=== PATIENT | female | born 1990 | race Caucasian/White ===

== ENCOUNTER 2020-10-20 15:40 | Outpatient (CLI) | payer OTHER, SELFPAY ==
[2020-10-20 16:44] LABS: SARS-CoV-2 RNA PCR Positive (Negative)
== END 2020-10-20 15:41 | disposition home or self-care (01) ==
LOC: CHSLAB 15:44
PROVIDERS: PCP Internal Medicine; Visit Provider Internal Medicine
DX: U07.1 COVID-19 (principal)
CPT/HCPCS: C9803; U0003; U0005

== ENCOUNTER 2023-05-10 17:57 | Emergency (ER) | payer OTHER, SELFPAY ==
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
[2023-05-10 18:00] VITALS: BP 139/98; PULSE 104; RESP 18; TEMP 36.6; O2SAT 97
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
[2023-05-10] MEDS: KETOROLAC 30 MG/ML VIAL (*BKC) IM (18:20)
[2023-05-10 18:46] LABS: Pregnancy On Board Control Positive; Urine Pregnancy Test Negative
--- NOTE | 2023-05-10 19:06 | PC.NURSE ---
On 05/10/23, the student, [cyndee العلي ], provided care and completed [facility] documentation on this patient. I have reviewed the student's documentation and agree with the findings.
--- NOTE | 2023-05-10 19:10 | PC.NURSE ---
patient report received from ELDA Stubbs. Patient awake and alert, given chips and soda per request.
--- NOTE | 2023-05-10 19:10 | PC.NURSE ---
patient report received from ELDA Stubbs. Patient awake and alert, resting on stretcher without distress and reports of improved pain. spouse at bedside.
== END 2023-05-10 19:33 | disposition home or self-care (01) ==
PROVIDERS: Emergency Provider Internal Medicine Critical Care Medicine; PCP Internal Medicine
DX: M25.522 Pain in left elbow (principal); V89.0XXA Person injured in unspecified motor-vehicle accident, nontraffic, initial encounter
CPT/HCPCS: 73080; 81025; 96372; 99283; J1885

== ENCOUNTER 2023-08-25 16:59 | Outpatient (CLI) | payer OTHER, SELFPAY ==
--- NOTE | ~2023-08-25 | XR_ITS ---
EXAM: XR lumbar spine 2-3V DATE: 08/25/2023 17:29 HISTORY: LOWER BACK PAIN X 8 MONTHS ONLY WHEN ITS COLD OUTSIDE . COMPARISON: None available. FINDINGS: 5 nonrib-bearing lumbar-type vertebral bodies. Pedicles intact. Normal vertebral body alig nment. Vertebral body heights preserved. Lumbar disc spaces maintained. Incidental note of mild jorge nal osteophytosis/degenerative change at the T12-L1 disc space Normal facets and posterior elements. No fracture or dislocation. IMPRESSION: Unremarkable lumbar spine radiograph findings. Reviewed, dictated and finalized at location K. [employer]
[2023-08-25 17:14] LABS: Appearance Urine Clear (Clear); Basophils Absolute Auto 0.05 K/mm3 (0.00-0.10); Basophils Percent Auto 0.6 % (0.0-1.0); Bilirubin Urine Negative (Negative); Blood Urine Negative (Negative); Color Urine Light Yellow (Yellow); Eosinophils Absolute Auto 0.31 K/mm3 (0.02-0.50); Eosinophils Percent Auto 3.9 % (1.0-6.0); Glucose Urine UA Negative (Negative); Hematocrit 40.9 % (35.0-49.0); Hemoglobin 13.4 g/dL (12.0-15.0); Immature Granulocyte Absolute 0.03 K/mm3 (0.00-0.00); Immature Granulocyte Percent A 0.4 % (0.0-0.0); Ketones Urine Negative (Negative); Leukocyte Esterase Ur Negative (Negative); Lymphocytes Absolute Auto 1.95 K/mm3 (1.10-4.50); Lymphocytes Percent Auto 24.4 % (18.0-42.0); Mean Corpuscular HGB Conc 32.8 g/dL (32.0-36.0); Mean Corpuscular Hemoglobin 27.5 pg (27.0-31.0); Mean Corpuscular Volume 83.8 fL (78.0-102.0); Mean Platelet Volume 9.9 fl (9.2-11.8); Neutrophils Absolute Auto 5.3 K/mm3 (1.7-7.2); Neutrophils Percent Auto 65.7 % (50.0-70.0); Nitrate Urine Negative (Negative); Platelet Count Result 298 K/mm3 (150-420); Protein Urine Negative (Negative); Red Blood Count 4.88 M/mm3 (4.20-5.40); Red Cell Distribution Width 13.5 % (11.6-14.4); Urobilinogen Urine 0.2 mg/dL (0.2-1.0); pH Urine 5.5 (5.0-8.0)
[2023-08-25 17:39] LABS: Add Urine Microscopic? NO
[2023-08-25 18:06] LABS: Hemoglobin A1C 5.1 % (<5.7)
[2023-08-25 18:16] LABS: Alanine Aminotransferase 54 U/L (14-59); Albumin Level 3.7 g/dL (3.4-5.0); Alkaline Phosphatase 123 U/L (46-116); Anion Gap 8 mmol/L (8-16); Aspartate Amino Transferase 32 U/L (15-37); Blood Urea Nitrogen 9 mg/dL (7-18); CRP 1.7 mg/dL (0.0-0.9); Calcium 8.4 mg/dL (8.5-10.1); Carbon Dioxide 29 mmol/L (21-32); Chloride 100 mmol/L (98-108); Cholesterol 174 mg/dL (0-200); Estimated Glomerular Filt Rate > 60; Glucose 85 mg/dL (70-99); HDL Direct 45 mg/dL (40-60); LDL Cholesterol Calculated 113 mg/dL (<130); Osmolality Calculated 281 mOsm/kg (285-295); Potassium 3.6 mmol/L (3.5-5.1); Sodium 137 mmol/L (136-145); Thyroid Stimulating Hormone 1.77 uIU/mL (0.36-3.74); Triglycerides 78 mg/dL (0-150)
== END 2023-08-25 17:00 | disposition home or self-care (01) ==
LOC: CHSLAB 17:01
PROVIDERS: PCP Internal Medicine; Visit Provider Internal Medicine
DX: M54.50 Low back pain, unspecified (principal)
CPT/HCPCS: 36415; 72100; 80053; 80061; 81003; 83036; 84443; 85025; 86140

== ENCOUNTER 2023-08-29 07:22 | Outpatient (CLI) | payer OTHER, SELFPAY ==
--- NOTE | ~2023-08-29 | US_ITS ---
Limited Abdominal Sonogram: Real-time sonographic imaging of the right upper quadrant was performed. Clinical History: Abnormal liver enzymes Findings: The liver appears echogenic, with no evidence of mass lesion or bile duct dilatation. Main portal vein demonstrates normal direction of flow. The gallbladder is well distended, and contains e chogenic gallstones. The common bile duct measures 3 mm. The visualized pancreas, aorta, and IVC are unremarkable. Impression: Cholelithiasis. Fatty infiltration of the liver. Reviewed, dictated and finalized at location M. [employer]AT[employer]IVER Impression: Cholelithiasis. Fatty infiltration of the liver.
== END 2023-08-29 07:23 | disposition home or self-care (01) ==
LOC: CHSIMG 07:24
PROVIDERS: PCP Internal Medicine; Visit Provider Internal Medicine
DX: R94.5 Abnormal results of liver function studies (principal); K76.0 Fatty (change of) liver, not elsewhere classified; K80.20 Calculus of gallbladder without cholecystitis without obstruction
CPT/HCPCS: 76705

== ENCOUNTER 2023-09-05 07:52 | Outpatient (RCR) | payer OTHER, SELFPAY ==
--- NOTE | 2023-09-15 16:50 | OPREHPOC ---
Outpatient Therapy Plan of Care This is a Multidisciplinary Plan of Care that may contain components documented by all disciplines (PT, OT, and ST.) PT Problem 1 PT Problem #1 Knowledge Deficit PT Goal 1 Goal patient to demonstrate independence with HEP Target Visit 5 PT Problem 2 PT Problem #2 Pain PT Goal 1 Goal 1. Patient to report highest pain at 2/10 2. Patient to report no increase in pain following work day Target Visit 10 PT Problem 3 PT Problem #3 Impaired Strength PT Goal 1 Goal 1. Patient to demonstrate 5/5 B hip strength to improve ability to squat for house hold tasks 2. Patient to demonstrate 4+/5 core strength to return to picking her daughter up with no increase in pain Target Visit 10 PT Problem 4 PT Problem #4 Impaired Functional Mobil PT Goal 1 Goal 1. Patient to report ability to grocery shop with no increase in low back pain 2. Patient to improve Back Index scoring by 20% 3. Patient to report full participation with her children with no low back pain Target Visit 10
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
--- NOTE | 2023-10-10 08:50 | OPREHPOC ---
Outpatient Therapy Plan of Care This is a Multidisciplinary Plan of Care that may contain components documented by all disciplines (PT, OT, and ST.) PT Problem 1 PT Problem #1 Knowledge Deficit PT Goal 1 Goal patient to demonstrate independence with HEP Target Visit 5 Progress Met PT Problem 2 PT Problem #2 Pain PT Goal 1 Goal 1. Patient to report highest pain at 2/10 2. Patient to report no increase in pain following work day Target Visit 10 Progress Partially Met PT Problem 3 PT Problem #3 Impaired Strength PT Goal 1 Goal 1. Patient to demonstrate 5/5 B hip strength to improve ability to squat for house hold tasks 2. Patient to demonstrate 4+/5 core strength to return to picking her daughter up with no increase in pain Target Visit 10 Progress Partially Met PT Problem 4 PT Problem #4 Impaired Functional Mobil PT Goal 1 Goal 1. Patient to report ability to grocery shop with no increase in low back pain 2. Patient to improve Back Index scoring by 20% 3. Patient to report full participation with her children with no low back pain Target Visit 10 Progress Met
--- NOTE | 2023-10-10 08:50 | PTOPDC ---
Assessment and note entered by Laura Galdamez DPT Evaluation Information Assessment Status Re-evaluation Diagnosis low back pain Onset 08/28/23 Subjective Information Patient reports since start of PT her back pain has improved. She reports that she has improved ability to lift her daughter and squat. She reports when is pain is at its worse walking will increase her pain. She reports independence with HEP. Reported Pain Level Pain Score 3: Self Report Assessment PT Clinical Summary Ms. Qiu was seen for 10 visits of skilled PT with good progress towards all goals. She demonstrates improved LE and core strength and ability to squat. She has decreased pain and improved lumbar ROM. She reports improvement with picking up her daughter and walking prolonged distances. She is independent with HEP and is appropriate for DC at this time. Plan of Care PT Services Indicated No
== END 2023-10-10 20:00 | disposition home or self-care (01) ==
LOC: CHSPT 07:52
PROVIDERS: PCP Internal Medicine; Visit Provider Internal Medicine
DX: M54.50 Low back pain, unspecified (principal)
CPT/HCPCS: 97014; 97110; 97161; G0283

== ENCOUNTER 2023-10-07 16:22 | Emergency (ER) | payer OTHER, SELFPAY ==
[2023-10-07 16:22] VITALS: BP 159/99; PULSE 98; RESP 17; TEMP 37; O2SAT 97
--- NOTE | 2023-10-07 16:31 | ED.DENTAL ---
HPI - Dental/Oral General Chief complaint: Dental/Oral Stated complaint: TOOTH PAIN Time Seen by Provider: 10/07/23 16:31 Source: patient and family Mode of arrival: ambulatory Limitations: no limitations History of Present Illness HPI Narrative: this is a 33-year-old female with a history of severe tooth decay and is currently having increased inflammation tooth decay in her right lower molar with surrounding gum inflammation, with tender submandibular gland on the right with no shortness of breath no fever chills no nausea vomiting. MD Complaint: tooth pain Teeth map: 1. tooth decay with surrounding gum inflammation Onset (ago): week(s) Duration: constant Severity: moderate Severity scale (1-10): 6 Exacerbating factors: chewing, cold and drinking fluids Context: history of dental caries Associated symptoms: gum swelling Related Data Allergies Allergy/AdvReac Type Severity Reaction Status Date / Time beet Allergy Unknown Hives Unverified 10/07/23 16:31 strawberry Allergy Unknown Hives Unverified 10/07/23 16:31 Review of Systems Review of Systems: All systems reviewed & are unremarkable except as noted in HPI and below PMFSH Past Medical History Medical History Anemia Social History Social History Smoking status: Current some day smoker Exam Const: General: healthy appearing, no acute distress and alert Nutritional Appearance: well nourished Orientation/consciousness: patient oriented x3 Limitations: no limitations HENMT: Head: normal to inspection Other: Severe tooth decay and predominantly right lower molar area with severe tooth decay with surrounding gum inflammation tenderness with palpation and tender right submandibular gland. Neck: Neck: lymphadenopathy Chest: Chest palpation & inspection: normal inspection of the chest Resp: Effort & Inspection: normal respiratory effort Auscultation: clear to auscultation bilaterally Cardio: Rate: regular rate Rhythm: regular rhythm GI: GI Palp: Yes Soft to palpation Back/Spine/Pelvis: Back: no CVA tenderness Skin: General skin exam: normal color Neuro: General: patient oriented x3 and moves all extremities Extrem: General: normal to inspection Psych: Mental Status: mental status grossly normal Course Course Emergency Course: Patient with some dental pain and severe tooth decay with surrounding gum inflammation indicative of a dental abscess will start antibiotic will be sending to her pharmacy. Vital Signs Vital signs: Vital Signs Temperature 37.0 C 10/07/23 16:22 Pulse Rate 98 10/07/23 16:22 Respiratory Rate 17 10/07/23 16:22 Blood Pressure 159/99 H 10/07/23 16:22 Pulse Oximetry 97 10/07/23 16:22 Oxygen Delivery Room Air 10/07/23 16:22 Temperature 37.0 C 10/07/23 16:22 Pulse Rate 98 10/07/23 16:22 Respiratory Rate 17 10/07/23 16:22 Blood Pressure 159/99 H 10/07/23 16:22 Pulse Oximetry 97 10/07/23 16:22 Oxygen Delivery Room Air 10/07/23 16:22 Critical Care Time Critical Care Time Critical Care Time: No Discharge Plan Discharge Clinical Impression: Dental abscess, Dental caries Patient Disposition: Home, Self-Care Condition: Stable Instructions: Antibiotic Form, Dental Abscess (ED), Toothache (ED) Additional Instructions: Advised to take medicine as prescribed and follow-up with dentist for further evaluation and treatment. Prescriptions: New amoxicillin 500 mg tablet 500 mg PO TID Qty: 30 0RF naproxen 500 mg tablet 500 mg PO BID PRN (Reason: pain) Qty: 20 0RF No Action meloxicam 7.5 mg tablet 7.5 mg PO DAILY Qty: 10 0RF Follow-up/Referrals: Deepak Taveras MD [Primary Care Provider] - Stand Alone Forms: Work/School Release IP Time of Disposition: 16:36
[2023-10-07 16:48] VITALS: BP 159/99; PULSE 98; RESP 17; TEMP 37; O2SAT 97
--- NOTE | 2023-10-07 17:05 | PC.NURSE ---
Prescriptions called to [facility] is closed, messaged left at [facility] to cancel prescription.
== END 2023-10-07 16:48 | disposition home or self-care (01) ==
PROVIDERS: Emergency Provider Emergency Medicine; PCP Internal Medicine
DX: K04.7 Periapical abscess without sinus (principal); K02.9 Dental caries, unspecified
CPT/HCPCS: 99283

== ENCOUNTER 2024-09-22 17:49 | Emergency (ER) | payer BC, SELFPAY ==
--- NOTE | ~2024-09-22 | CT_ITS ---
EXAMINATION: CT abdomen pelvis wo con DATE: 09/22/2024 20:44 INDICATION: Right flank pain SINCE 1530 HRS TODAY. TECHNIQUE: Computed tomography (CT) of the abdomen and pelvis was performed without intravenous contr ast. Automated exposure control and iterative reconstruction technique were employed. The dose-length product was 1300.86 mGy-cm. COMPARISON: None. FINDINGS: Lower thorax: Minimal scar/atelectasis in the peripheral right middle lobe. Small hiatal hernia. Liver: Normal. Biliary/Gallbladder: Cholelithiasis. No inflammatory change. No bile duct dilation. Pancreas: No mass or duct dilation. Spleen: Normal. Adrenals:No mass. Kidneys: No suspicious mass, obstructing stone, or hydronephrosis. Punctate right midpole calcificati on. 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 GI tract: No small or large bowel dilation. Dilated appendix with mild surrounding inflammatory casillas e. Mesentery/Peritoneum: No ascites, mass, or free air. Retroperitoneum: No mass. Pelvis: Normal urinary bladder, uterus, and ovaries. 4.3 cm simple appearing right ovarian cyst. Soft Tissues: Small uncomplicated appearing fat-containing periumbilical hernia. Bones: No acute osseous finding. IMPRESSION: Cholelithiasis, without CT evidence of cholecystitis. No CT evidence of obstructive uropathy. Acute uncomplicated appendicitis. Reviewed, dictated and finalized at location K.
[2024-09-22 17:51] VITALS: BP 155/92; PULSE 86; RESP 16; TEMP 36.8; O2SAT 96
--- OUTSIDE RECORDS SUMMARY | 2024-09-22 17:52 | XMS_ITS | Continuity of Care Document ---
Author Organization [facility] Address [address] [place] [address] [place] [address] Phone Care Team Providers Care Medical Office Secretary Name Role Phone Unavailable Unavailable Unavailable Advance Directives Directive Yes / No Effective Date File Name No Information Encounters Encounter Description Practice Location Reason(s) For Visit Diagnoses Date Provider Providers Copied on Encounter [facility], [address] [place] [address] [address], [place], [place], [id number], [place] tel:[phone] [facility] [place] No Information Sep- 7-200 0 No Information Family History Family Member Type Diagnosis Age At Onset No Information Payers Payer name Insurance type Covered republican ID Authoriza tion(s) [employer]I CI [id number] Social History Type Description Quantity Date Captured Comments Sex Female Smoking Status No Information Chief Complaint And Reason For Visit No Information Reason For Referral Reason For Referral No Information History Of Present Illness Encounter Date Complaint History Of Prese nt Illness No Information Functional Status Date Functional Assessmen t No Information Instructions Date Instruction Additional Infor mation No Information Assessments Type Assessment Date No Information Patient Care Teams Name Effective Dates (start - stop) Status Members No Information
--- NOTE | 2024-09-22 18:06 | ED.GENADULT ---
HPI - General Adult General Chief complaint: Urogenital-Female <Ulices Jara DO - Last Filed: 09/24/24 07:55> Stated complaint: rt. side flank pain <Ulices Jara DO - Last Filed: 09/24/24 07:55> Time Seen by Provider: 09/22/24 17:58 <Ulices Jara DO - Last Filed: 09/24/24 07:55> History of Present Illness HPI narrative: Josie is a 34F with a PMH of anemia that presented ot the ED with right flank pain for a couple hours. It started as right flank pain that radiates to the groin associated with nausea but no vomiting. She has had a couple episodes of watery diarrhea as well. No hematuria, dysuria, fevers, chills or dyspnea. <Ulices Jara DO - Last Filed: 09/24/24 07:55> Related Data Home medications: Home Medications ?Medication ?Instructions ?Recorded ?Confirmed ?Last Taken ?Type citalopram 20 mg tablet 40 mg PO DAILY 09/23/24 09/23/24 09/23/24 History valproic acid 250 mg capsule 250 mg PO Q12H 09/23/24 09/23/24 09/23/24 History <Ulices Jara DO - Last Filed: 09/24/24 07:55> Allergies/adverse reactions: Allergies Allergy/AdvReac Type Severity Reaction Status Date / Time beet Allergy Unknown Hives Verified 09/23/24 08:19 strawberry Allergy Unknown Hives Verified 09/23/24 08:19 <Ulices Jara DO - Last Filed: 09/24/24 07:55> Review of Systems Review of Systems: All systems reviewed & are unremarkable except as noted in HPI and below <Ulices Jara DO - Last Filed: 09/24/24 07:55> PMF Past Medical History Medical History: Medical History Anemia <Ulices Jara DO - Last Filed: 09/24/24 07:55> Social History Social History: Social History Smoking status: Never smoker Second hand tobacco smoke exposure: No Alcohol intake: never Substance use: current Substance use type: marijuana Do You Feel Safe in your Home?: Yes Lack of Transportation: No Lack of Food: Never True Current Housing: I Have Housing Concerned About Future Housing: No Difficulty Paying Gas/Electric Bills: No Difficulty Paying for Meds: No Currently Unemployed: No Education: Master's Degree or Higher Difficulty w/ Childcare or Family Care: No Spiritual care concerns: No <Ulices Jara DO - Last Filed: 09/24/24 07:55> Exam Const: General: cooperative, healthy appearing, comfortable, no acute distress, well developed, alert, awake and Physically active <Ulices Jara DO - Last Filed: 09/24/24 07:55> Orientation/consciousness: oriented to person, oriented to place and oriented to time <Ulices Jara DO - Last Filed: 09/24/24 07:55> HENMT: Head: normal to inspection, normocephalic and atraumatic <Ulices Jara DO - Last Filed: 09/24/24 07:55> Ears: hearing grossly normal bilaterally and external ears normal <Ulices Jara, DO - Last Filed: 09/24/24 07:55> Face/Nose/Sinus: Normal external nose present <Ulices Jara DO - Last Filed: 09/24/24 07:55> Eyes: General: appearance normal, both eyes and all related structures <Ulices Jara DO - Last Filed: 09/24/24 07:55> Periorbital: periorbital findings normal <Ulices Jara DO - Last Filed: 09/24/24 07:55> Sclera: sclerae normal <Ulices Jara DO - Last Filed: 09/24/24 07:55> Pupils: Equal, round and reactive pupils present <Ulices Jara DO - Last Filed: 09/24/24 07:55> Neck: Neck: normal visual inspection <Ulices Jara DO - Last Filed: 09/24/24 07:55> Chest: Chest palpation & inspection: normal inspection of the chest <Ulices Jara DO - Last Filed: 09/24/24 07:55> Resp: Effort & Inspection: normal respiratory effort, able to speak in complete sentences and no respiratory distress <Ulices Jara DO - Last Filed: 09/24/24 07:55> Auscultation: clear to auscultation bilaterally <Ulices Jara DO - Last Filed: 09/24/24 07:55> Cardio: Jugular venous distension: no JVD <Ulices Jara DO - Last Filed: 09/24/24 07:55> Rate: regular rate <Ulices Jara DO - Last Filed: 09/24/24 07:55> Rhythm: regular rhythm <Ulices Jara DO - Last Filed: 09/24/24 07:55> GI: Inspection: normal to inspection <Ulices Jara DO - Last Filed: 09/24/24 07:55> GI Palp: Yes Soft to palpation <Ulices Jara DO - Last Filed: 09/24/24 07:55> Auscultation: normal bowel sounds <Ulices Jara DO - Last Filed: 09/24/24 07:55> Skin: General skin exam: normal color and no rashes or lesions noted <Ulices Jara DO - Last Filed: 09/24/24 07:55> Neuro: General: oriented to person, oriented to place and oriented to time <Ulices Jara DO - Last Filed: 09/24/24 07:55> Cranial nerves: Yes Equal, round and reactive pupils present <Ulices Jara DO - Last Filed: 09/24/24 07:55> Extrem: General: normal to inspection <Ulices Jara DO - Last Filed: 09/24/24 07:55> Course Course Emergency Course: Ordered labs and UA. Given toradol and Zofran. <Ulices Jara DO - Last Filed: 09/24/24 07:55> Reevaluation(s) Reevaluation #1: 19:00 - This patient was signed out to me by previous ED physician, Dr. Jara pending labs, imaging and re-evaluation. 21:20 - CBC demonstrates a white blood cell count of 16.6 with left shift. Chemistries remarkable only for slightly elevated alkaline phosphatase 128 and glucose of 133. Lipase 23. Lactic acid 1.7. Urinalysis unremarkable. test negative. CT abdomen pelvis demonstrates changes consistent with acute appendicitis. I discussed these findings with the patient with recommendation for antibiotics and General surgery evaluation. The patient voiced understanding and is comfortable with plan. She states her pain is currently controlled. 22:12 - General surgeon Dr. Moses was informed of the patient by overnight houseperson ELDA Saravia and accepted transfer with admission to general surgery. I did not speak directly with Dr. Moses. Will transfer. <Amari Peterson MD - Last Filed: 09/22/24 22:13> Vital Signs Vital signs: Vital Signs Temperature 98.2 F 09/22/24 17:51 Pulse Rate 86 09/22/24 17:51 Respiratory Rate 16 09/22/24 17:51 Blood Pressure 155/92 H 09/22/24 17:51 Pulse Oximetry 96 09/22/24 17:51 Oxygen Delivery Room Air 09/22/24 17:51 Temperature 97.6 F 09/22/24 22:41 Pulse Rate 77 09/22/24 22:41 Respiratory Rate 18 09/22/24 22:41 Blood Pressure 121/73 09/22/24 22:41 Pulse Oximetry 98 09/22/24 22:41 Oxygen Delivery Room Air 09/22/24 22:41 <Ulices Jara DO - Last Filed: 09/24/24 07:55> Vital Signs Temperature 98.2 F 09/22/24 17:51 Pulse Rate 86 09/22/24 17:51 Respiratory Rate 16 09/22/24 17:51 Blood Pressure 155/92 H 09/22/24 17:51 Pulse Oximetry 96 09/22/24 17:51 Oxygen Delivery Room Air 09/22/24 17:51 Temperature 97.6 F 09/22/24 22:41 Pulse Rate 77 09/22/24 22:41 Respiratory Rate 18 09/22/24 22:41 Blood Pressure 121/73 09/22/24 22:41 Pulse Oximetry 98 09/22/24 22:41 Oxygen Delivery Room Air 09/22/24 22:41 <Amari Peterson MD - Last Filed: 09/22/24 22:13> Medical Decision Making Vital Signs Vital Signs: Vital Signs Temperature 98.2 F 09/22/24 17:51 Pulse Rate 86 09/22/24 17:51 Respiratory Rate 16 09/22/24 17:51 Blood Pressure 155/92 H 09/22/24 17:51 Pulse Oximetry 96 09/22/24 17:51 Oxygen Delivery Room Air 09/22/24 17:51 Temperature 97.6 F 09/22/24 22:41 Pulse Rate 77 09/22/24 22:41 Respiratory Rate 18 09/22/24 22:41 Blood Pressure 121/73 09/22/24 22:41 Pulse Oximetry 98 09/22/24 22:41 Oxygen Delivery Room Air 09/22/24 22:41 <Ulices Jara DO - Last Filed: 09/24/24 07:55> Vital Signs Temperature 98.2 F 09/22/24 17:51 Pulse Rate 86 09/22/24 17:51 Respiratory Rate 16 09/22/24 17:51 Blood Pressure 155/92 H 09/22/24 17:51 Pulse Oximetry 96 09/22/24 17:51 Oxygen Delivery Room Air 09/22/24 17:51 Temperature 97.6 F 09/22/24 22:41 Pulse Rate 77 09/22/24 22:41 Respiratory Rate 18 09/22/24 22:41 Blood Pressure 121/73 09/22/24 22:41 Pulse Oximetry 98 09/22/24 22:41 Oxygen Delivery Room Air 09/22/24 22:41 <Amari Peterson MD - Last Filed: 09/22/24 22:13> Lab Data Result diagrams: 09/22/24 19:31 09/22/24 19:31 <Ulices Jara DO - Last Filed: 09/24/24 07:55> Labs: Lab Results 09/22/24 Range/Units 19:31 WBC 16.6 H (4.8-10.8) K/mm3 RBC 4.87 (4.20-5.40) M/mm3 Hgb 13.4 (12.0-15.0) g/dL Hct 42.2 (35.0-49.0) % MCV 86.7 (78.0-102.0) fL MCH 27.5 (27.0-31.0) pg MCHC 31.8 L (32-36) g/dL RDW 14.2 (11.6-14.4) % Plt Count 326 (150-420) K/mm3 MPV 10.5 (9.2-11.8) fl Immature Gran % (Auto) 0.5 H (0.0-0.0) % Neut % (Auto) 82.9 H (50.0-70.0) % Lymph % (Auto) 12.8 L (18.0-42.0) % Dickson % (Auto) 2.6 (2.0-11.0) % Eos % (Auto) 1.0 (1.0-6.0) % Baso % (Auto) 0.2 (0.0-1.0) % Lymph # (Auto) 2.12 (1.10-4.50) K/mm3 Dickson # (Auto) 0.43 (0.10-0.90) K/mm3 Eos # (Auto) 0.17 (0.02-0.50) K/mm3 Baso # (Auto) 0.04 (0.00-0.10) K/mm3 Abs Immat Gran (auto) 0.09 H (0.00-0.00) K/mm3 Absolute Neuts (auto) 13.72 H (1.70-7.20) K/mm3 Absolute Nucleated RBC 0.00 (0.00-0.00) K/mm3 Nucleated RBC % 0.0 (0-0.0) % Sodium 137 (136-145) mmol/L Potassium 3.7 (3.5-5.1) mmol/L Chloride 102 (98-108) mmol/L Carbon Dioxide 25 (21-32) mmol/L Anion Gap 10 (4-12) mmol/L BUN 11 (7-18) mg/dL Creatinine 0.97 (0.55-1.02) mg/dL Estim Creat Clear Calc 94 ml/min Estimated GFR > 60 (59 - ) Glucose 133 H (70-99) mg/dL Calculated Osmolality 285 (285-295) mOsm/kg Lactic Acid 1.7 (0.4-2.0) mmol/L Calcium 8.7 (8.5-10.1) mg/dL Total Bilirubin 0.4 (0.00-1.00) mg/dL AST 27 (15-37) U/L ALT 43 (14-59) U/L Alkaline Phosphatase 128 H (46-116) U/L Total Protein 8.1 (6.4-8.2) g/dL Albumin 3.5 (3.4-5.0) g/dL Lipase 23 (16-77) U/L Urine Color Light yellow (Yellow) Urine Appearance Clear (Clear) Urine pH 7.0 (5.0-8.0) Ur Specific [place] 1.025 H (1.010-1.020) Urine Protein Negative (Negative) Urine Glucose (UA) Negative (Negative) Urine Ketones Negative (Negative) Ur Blood (Man) Negative (Negative) Urine Nitrate Negative (Negative) Urine Bilirubin Negative (Negative) Urine Urobilinogen 0.2 (0.2-1.0) mg/dL Leukocyte Esterase Rfl Negative (Negative) ALICE/UL Urine Test Negative <Ulices Jara, DO - Last Filed: 09/24/24 07:55> Lab Results 09/22/24 Range/Units 19:31 WBC 16.6 H (4.8-10.8) K/mm3 RBC 4.87 (4.20-5.40) M/mm3 Hgb 13.4 (12.0-15.0) g/dL Hct 42.2 (35.0-49.0) % MCV 86.7 (78.0-102.0) fL MCH 27.5 (27.0-31.0) pg MCHC 31.8 L (32-36) g/dL RDW 14.2 (11.6-14.4) % Plt Count 326 (150-420) K/mm3 MPV 10.5 (9.2-11.8) fl Immature Gran % (Auto) 0.5 H (0.0-0.0) % Neut % (Auto) 82.9 H (50.0-70.0) % Lymph % (Auto) 12.8 L (18.0-42.0) % Dickson % (Auto) 2.6 (2.0-11.0) % Eos % (Auto) 1.0 (1.0-6.0) % Baso % (Auto) 0.2 (0.0-1.0) % Lymph # (Auto) 2.12 (1.10-4.50) K/mm3 Dickson # (Auto) 0.43 (0.10-0.90) K/mm3 Eos # (Auto) 0.17 (0.02-0.50) K/mm3 Baso # (Auto) 0.04 (0.00-0.10) K/mm3 Abs Immat Gran (auto) 0.09 H (0.00-0.00) K/mm3 Absolute Neuts (auto) 13.72 H (1.70-7.20) K/mm3 Absolute Nucleated RBC 0.00 (0.00-0.00) K/mm3 Nucleated RBC % 0.0 (0-0.0) % Sodium 137 (136-145) mmol/L Potassium 3.7 (3.5-5.1) mmol/L Chloride 102 (98-108) mmol/L Carbon Dioxide 25 (21-32) mmol/L Anion Gap 10 (4-12) mmol/L BUN 11 (7-18) mg/dL Creatinine 0.97 (0.55-1.02) mg/dL Estim Creat Clear Calc 94 ml/min Estimated GFR > 60 (59 - ) Glucose 133 H (70-99) mg/dL Calculated Osmolality 285 (285-295) mOsm/kg Lactic Acid 1.7 (0.4-2.0) mmol/L Calcium 8.7 (8.5-10.1) mg/dL Total Bilirubin 0.4 (0.00-1.00) mg/dL AST 27 (15-37) U/L ALT 43 (14-59) U/L Alkaline Phosphatase 128 H (46-116) U/L Total Protein 8.1 (6.4-8.2) g/dL Albumin 3.5 (3.4-5.0) g/dL Lipase 23 (16-77) U/L Urine Color Light yellow (Yellow) Urine Appearance Clear (Clear) Urine pH 7.0 (5.0-8.0) Ur Specific [place] 1.025 H (1.010-1.020) Urine Protein Negative (Negative) Urine Glucose (UA) Negative (Negative) Urine Ketones Negative (Negative) Ur Blood (Man) Negative (Negative) Urine Nitrate Negative (Negative) Urine Bilirubin Negative (Negative) Urine Urobilinogen 0.2 (0.2-1.0) mg/dL Leukocyte Esterase Rfl Negative (Negative) ALICE/UL Urine Test Negative <Amari Peterson MD - Last Filed: 09/22/24 22:13> Discharge Plan Discharge Clinical Impression: Acute appendicitis, Abdominal pain, right lower quadrant <Ulices Jara DO - Last Filed: 09/24/24 07:55> Patient Disposition: Acute Care [facility] <Ulices Jara DO - Last Filed: 09/24/24 07:55> Condition: Serious <Ulices Jara DO - Last Filed: 09/24/24 07:55> Patient Language: Kyrgyz <Ulices Jara DO - Last Filed: 09/24/24 07:55> Prescriptions: No Action valproic acid 250 mg capsule 250 mg PO Q12H citalopram 20 mg tablet 40 mg PO DAILY hydrocodone-acetaminophen 5-325 mg Tablet 1 tablet PO Q6H PRN (Reason: Pain Rated 4-6) Qty: 10 0RF <Ulices Jara DO - Last Filed: 09/24/24 07:55> Follow-up/Referrals: Kieran Baig M.D. [Primary Care Provider] - <Ulices Jara DO - Last Filed: 09/24/24 07:55> Time of Disposition: 22:12 <Ulices Jara DO - Last Filed: 09/24/24 07:55> 22:12 <Amari Peterson MD - Last Filed: 09/22/24 22:13>
--- OUTSIDE RECORDS SUMMARY | 2024-09-22 18:37 | XMS_ITS | Encounter Summary ---
Author Organization [facility] Address [address] [place] [id number] Care Team Providers Care Financial Solutions Advisor Name Role Phone Deepak Taveras MD Primary Care Provider [phone] Kieran Baig MD Unavailable [phone] Encounter Details Date Type Department Care Team (Late st Contact Info) Description 12/15/2018 Abstract [facility]FL CONVERSION [address] [place] [address] , Generic MD Apoorva Social History Tobacco Use Types Packs/Day Years Used Date Smoking Tobacco: Never Assessed Comments Unknown Sex and Gender Information Value Date Recorded Sex Assigned at Not on file Legal Sex Female 5:48 PM SUPERVISOR ABATTOIR Gender Identity Not on file Sexual Orientation Straight 09/13/2022 9: 50 PM SUPERVISOR ABATTOIR documented as of this encounter Plan of Treatment Not on file documented as of this encounter Visit Diagnoses Not on filedocumented in this encounter Care Teams Financial Solutions Advisor Relationship Specialty Start Date End Date Deepak Taveras MD [address] [place] [id number] PCP - General INTERNAL MEDICINE 02/20/21 Kieran Baig MD [address] [place] [address] JANET 03/11/22 documented as of this encounter
--- OUTSIDE RECORDS SUMMARY | 2024-09-22 18:37 | XMS_ITS | Clinical Summary ---
Author Organization [facility] Address [facility]ly [facility] [place] [address] Care Team Providers Care Quoter Name Role Phone Deepak Taveras MD Primary Care Provider [phone] Kieran Baig MD Unavailable [phone] Allergies No known active allergies Medications vitamin, low iron, ( VITAMIN WITH IRON) 27-0.8 MG tablet Take 1 tablet by mouth daily. Active Active Problems Problem Noted Date Diagnosed Date Uterine contractions during ([facility]CC) 09/13/2022 Vaginal bleeding during ([facility]/HCC) 08/2022 Family History Medical History Relation Comments No Known Problems Father Clotting Disorder Mother Diabetes Mother Asthma Sister 1 Cancer Sister 1 Clotting Disorder Sister 1 Cancer Sister 2 Relation Status Comments Father Alive Mother Alive Sister 1 Alive Sister 2 Alive Social History Tobacco Use Types Packs/Day Years Used Date Smoking Tobacco: Former Cigarettes Q uit: 01/06/2022 Passive Smoke Exposure: Current Smokeless Tobacco: Never Alcohol Use Standard Drinks/Week Comments Not Currently 0 (1 standard drink = 0.6 oz pur e alcohol) few Social Connection and Isolat ion Panel [NHANES] Answer Date Recorded In a typical week, how many times do you talk on the phone with family, friends, or neighbors? More than three times a week 09/13/2022 How often do you get togethe r with friends or relatives? Never 09/13/2022 How often do you attend chur ch or caodaism services? Never 09/13/2022 Do you belong to any clubs o r organizations such as baptism groups, unions, fraternal or athletic groups, or school groups? No 09/13/2022 How often do you attend meet ings of the clubs or organizations you belong to? Never 09/13/2022 Are you , , di vorced, , never , or living with a partner? 09/13/2022 AUDIT-C Answer Date Recorded Q1: How often do you have a drink containing alcohol? Never 09/13/2022 Q2: How many drinks containi ng alcohol do you have on a typical day when you are drinking? Patient does not drink Q3: How often do you have si x or more drinks on one occasion? Never 09/13/2022 Overall Financial Resource Strain (CARDIA) Answe r Date Recorded How hard is it for you to pa y for the very basics like food, housing, medical care, and heating? Not hard at all 09/13/2022 [facility] - Occupational Stress Questionnaire Answer Date Recorded Do you feel stress - tense, restless, nervous, or anxious, or unable to sleep at night because your mind is troubled all the time - these days? Not at all 09/13/2022 Exercise Vital Sign Answer Date Recorde d On average, how many days pe r week do you engage in moderate to strenuous exercise (like a brisk walk)? 6 days 09/13/2022 On average, how many minutes do you engage in exercise at this level? 30 min 09/13/2022 Hunger Vital Sign Answer Date Recorded Within the past 12 months, y ou worried that your food would run out before you got the money to buy more. Never true 09/14/19 23 Within the past 12 months, t he food you bought just didn't last and you didn't have money to get more. Never true 09/13/2022 PRAPARE - Transportation Answer Date Re corded In the past 12 months, has l ack of transportation kept you from medical appointments or from getting medications? No 01/2023 In the past 12 months, has l ack of transportation kept you from meetings, work, or from getting things needed for daily living? No 09/13/2022 Housing Stability Vital Sign Answer Cj e Recorded In the last 12 months, was t here a time when you were not able to pay the mortgage or rent on time? No 09/13/2022 In the last 12 months, how many places have you lived? 1 09/13/2022 In the last 12 months, was t here a time when you did not have a steady place to sleep or slept in a nursing home (including now)? No 09/13/2022 Depression Answer Date Recor ded Last EPDS Total Score 3 09/14/2022 Last EPDS Self Harm Result Often 09/14 Comments No Sex and Gender Information Value Date Recorded Sex Assigned at Not on file Legal Sex Female 5:48 PM BIOLOGIST Gender Identity Not on file Sexual Orientation Straight 09/13/2022 9: 50 PM BIOLOGIST Last Filed Vital Signs Vital Sign Reading Time Taken Comments Blood Pressure 139/83 09/15/2022 10:58 AM BIOLOGIST Pulse 79 09/15/2022 10:58 AM BIOLOGIST Temperature 36.7 C (98.1 F) 09/15/2022 8:40 AM BIOLOGIST Respiratory Rate 20 09/15/2022 8:40 AM BIOLOGIST Oxygen Saturation 98% 09/15/2022 8:40 AM BIOLOGIST Inhaled Oxygen Concentration - - Weight 98.4 kg (217 lb) 09/13/2022 5:00 PM BIOLOGIST Height 167.6 cm (5' 6 ) 09/13/2022 5:00 PM BIOLOGIST Body Mass Index 35.02 09/13/2022 5:00 PM BIOLOGIST Plan of Treatment Health Maintenance Due Date Last Done Comments Cervical Cancer Screening Pap Smear (Age 30 to 64) Every 3 Years 1991 Annual Physical 1994 DTaP, Tdap and Td Vaccines (1 - Tdap) 2010 09/08/1995, 11/13/1992, 1991, Additional history exists Hepatitis B Vaccines (1 of 3 - 19+ 3-dose series) 2010 Cervical Cancer Screening Pap with HPV Testing (Age 30 to 64) Every 5 Years 2021 Cervical Cancer Screening with HPV 2021 COVID-19 Vaccine (3 - 2024-25 season) 2024 12/17/2020, 11/26/2020 Influenza Adult (#1) 2024 Hepatitis C Completed 02/04/2022 HPV Vaccines Aged Out No longer eligi ble based on patient's age to complete this topic Meningococcal B Vaccine Aged Out No l onger eligible based on patient's age to complete this topic Meningococcal Vaccine Aged Out No trina bella eligible based on patient's age to complete this topic Pneumococcal Vaccine: Pediatrics (0 to 5 Years) and At-Risk Patients (6 to 64 Years) Aged Out No longer eligible based on patient's age to complete this topic RSV Immunizations Under 20 Months Aged Out No longer eligible based on patient's age to complete this topic Procedures Procedure Name Priority Date/Time Associated Diagnosis Comments HEPATITIS C ANTIBODY Routine 02/04/2022 12:36 PM CDT Family history of blood clots Encounter for supervision of other normal , unspecified trimester (HHS/HCC) from Last 3 Months or Most Recently Relevant to Health Maintenance Results * HEPATITIS C ANTIBODY (02/04/2022 12:36 PM CDT) HEPATITIS C AB NON-REACTI VE NON-REACT CESIA 02/05/2022 6:34 PM CDT [facility] Comment: ANTIBODIES TO HCV NOT DETECTED. DOES NOT EXCLUDE THE POSSIBILITY OF EXPOSURE TO HCV. 02/04/2022 12:3 6 PM CDT Zora Tong NP LABORATORY Final Result [facility] [address] [place] [address], [id number] from Last 3 Months or Most Recently Relevant to Health Maintenance [place] [address] [place] [address] Care Teams Quoter Relationship Specialty Start Date End Date Deepak Taveras MD [address] [place] [address] PCP - General INTERNAL MEDICINE 02/20/21 Kieran Baig MD [address] [place] [address] OBLILA 03/11/22
--- OUTSIDE RECORDS SUMMARY | 2024-09-22 18:37 | XMS_ITS | Encounter Summary ---
Author Organization [facility] Address [facility] [place] [address] Care Team Providers Care Wraparound Facilitator Name Role Phone Deepak Taveras MD Primary Care Provider [phone] Kieran Baig MD Unavailable [phone] Encounter Details Date Type Department Care Team (Late st Contact Info) Description 09/26/2022 Telephone [facility] [address] [place] [address] Carmen Ellis, RN Social History Tobacco Use Types Packs/Day Years [...] often do you attend chur ch or mormonism services? Never 09/13/2022 Do you belong to any clubs o r organizations such as pentecostal groups, unions, fraternal or athletic groups, or [...] and heating? Not hard at all 09/13/2022 [facility] of Occupat ional Health - Occupational Stress [...] place to sleep or slept in a group home (including now)? No 09/13/2022 Depression Answer Date Recor ded Last EPDS Total Score 3 09/14/2022 Last EPDS Self Harm Result Often 09/14 Comments No Sex and Gender Information Value Date Recorded Sex Assigned at Not on file Legal Sex Female 5:48 PM X RAY EQUIPMENT TESTER Gender Identity Not on file Sexual Orientation Straight 09/13/2022 9: 50 PM X RAY EQUIPMENT TESTER COVID-19 Exposure Response Date Recorded In the last 10 days, have yo u been in contact with someone who was confirmed or suspected to have Coronavirus/COVID-19? No / Unsure 09/17/2022 11:20 AM X RAY EQUIPMENT TESTER documented as of this encounter Functional Status * Are you deaf or do you have serious difficulty hearing Answer Date of Assessment Author Status No 09/13/2022 6:35 PM Mireille Perry RN Active * Are you blind or do you have serious difficulty seeing, even when wearing glasses? Answer Date of Assessment Author Status No 09/13/2022 6:35 PM Mireille Perry RN Active * Do you have serious difficulty walking or climbing stairs? Answer Date of Assessment Author Status No 09/13/2022 6:35 PM Mireille Perry RN Active * Do you have difficulty dressing or bathing? Answer Date of Assessment Author Status No 09/13/2022 6:35 PM Mireille Perry RN Active * Because of a physical, mental, or emotional condition, do you have difficulty doing errands alone such as visiting a doctor's office or shopping? Answer Date of Assessment Author Status No 09/13/2022 6:35 PM Mireille Perry RN Active documented as of this encounter Mental Status * Because of a physical, mental, or emotional condition, do you have serious difficulty concentrating, remembering, or making decisions? Answer Entry Date Author Status No 09/13/2022 6:35 PM Mireille Perry RN Active documented in this encounter Progress Notes * Carmen Ellis RN - 09/26/2022 8:43 PM CDT Phone call to pt for follow up at this time. Pt states that she is no longer and that she switched to bottle feeding in hospital when baby would not breastfeed after first attempt. Pt denies any question or concern about bottle feeding . Advised to call ob dept anytimewith any question or concern. documented in this encounter Plan of Treatment Not on file documented as of this encounter Visit Diagnoses Not on filedocumented in this encounter Care Teams Wraparound Facilitator Relationship Specialty Start Date End Date Deepak Taveras MD [address] [place] [id number] PCP - General INTERNAL MEDICINE 02/20/21 Kieran Baig MD [address] [facility] [address] [place] [address] OBGYN 03/11/22 documented as of this encounter
--- OUTSIDE RECORDS SUMMARY | 2024-09-22 18:37 | XMS_ITS | Continuity of Care Document ---
Author Organization [facility] Address [address] [place] [address] [place] [address] Phone Care Team Providers Care Edi Programmer Analyst Name Role Phone Unavailable Unavailable Unavailable Advance Directives Directive Yes / No Effective Date File Name No Information Encounters Encounter Description Practice Location Reason(s) For Visit Diagnoses Date Provider Providers Copied on Encounter [facility], [address] [place] [address] [address], [place], [place], [id number], [place] tel:[phone] [facility] [place] No Information Sep- 7-200 0 No Information Family History Family Member Type Diagnosis Age At Onset No Information Payers Payer name Insurance type Covered alliance party ID Authoriza tion(s) [employer] SOI CI [id number] Social History Type Description Quantity Date Captured [...]
[2024-09-22] MEDS: KETOROLAC 30 MG/ML VIAL (*BKC) IM (19:29)
[2024-09-22] MEDS: ONDANSETRON HCL ODT 4 MG TABLET PO (19:30)
[2024-09-22 19:47] LABS: Basophils Absolute Auto 0.04 K/mm3 (0.00-0.10); Basophils Percent Auto 0.2 % (0.0-1.0); Eosinophils Absolute Auto 0.17 K/mm3 (0.02-0.50); Hematocrit 42.2 % (35.0-49.0); Hemoglobin 13.4 g/dL (12.0-15.0); Immature Granulocyte Absolute 0.09 K/mm3 (0.00-0.00); Immature Granulocyte Percent A 0.5 % (0.0-0.0); Lymphocytes Absolute Auto 2.12 K/mm3 (1.10-4.50); Lymphocytes Percent Auto 12.8 % (18.0-42.0); Mean Corpuscular HGB Conc 31.8 g/dL (32-36); Mean Corpuscular Hemoglobin 27.5 pg (27.0-31.0); Mean Corpuscular Volume 86.7 fL (78.0-102.0); Mean Platelet Volume 10.5 fl (9.2-11.8); Monocytes Absolute Auto 0.43 K/mm3 (0.10-0.90); Monocytes Percent Auto 2.6 % (2.0-11.0); Neutrophils Absolute Auto 13.72 K/mm3 (1.70-7.20); Neutrophils Percent Auto 82.9 % (50.0-70.0); Platelet Count Result 326 K/mm3 (150-420); Red Blood Count 4.87 M/mm3 (4.20-5.40); Red Cell Distribution Width 14.2 % (11.6-14.4); White Blood Count 16.6 K/mm3 (4.8-10.8)
[2024-09-22 20:08] LABS: Add Urine Microscopic? NO; Alanine Aminotransferase 43 U/L (14-59); Albumin Level 3.5 g/dL (3.4-5.0); Alkaline Phosphatase 128 U/L (46-116); Anion Gap 10 mmol/L (4-12); Appearance Urine Clear (Clear); Aspartate Amino Transferase 27 U/L (15-37); Bilirubin Urine Negative (Negative); Bilirubin,Total 0.4 mg/dL (0.00-1.00); Blood Urea Nitrogen 11 mg/dL (7-18); Blood Urine Negative (Negative); Calcium 8.7 mg/dL (8.5-10.1); Carbon Dioxide 25 mmol/L (21-32); Chloride 102 mmol/L (98-108); Color Urine Light Yellow (Yellow); Estimated CRCL calculation 94 ml/min; Estimated Glomerular Filt Rate > 60; Glucose 133 mg/dL (70-99); Glucose Urine UA Negative (Negative); Ketones Urine Negative (Negative); Leukocyte Esterase Ur Negative LEU/UL (Negative); Lipase 23 U/L (16-77); Nitrate Urine Negative (Negative); Osmolality Calculated 285 mOsm/kg (285-295); Potassium 3.7 mmol/L (3.5-5.1); Protein Urine Negative (Negative); Sodium 137 mmol/L (136-145); Specific Grav Ur 1.025 (1.010-1.020); Total Protein 8.1 g/dL (6.4-8.2); Urobilinogen Urine 0.2 mg/dL (0.2-1.0)
[2024-09-22 20:12] LABS: Lactic Acid Reflex 1.7 mmol/L (0.4-2.0)
[2024-09-22 20:13] LABS: Pregnancy On Board Control Positive; Urine Pregnancy Test Negative
[2024-09-22] MEDS: PIPERACILLN/TAZ 3.375GM/NS50ML 3.375 GM/50 ML BAG IVPB (22:23)
[2024-09-22 22:41] VITALS: BP 121/73; PULSE 77; RESP 18; TEMP 36.4; O2SAT 98
== END 2024-09-22 23:05 | disposition short-term general hospital (02) ==
PROVIDERS: Family Medicine; Emergency Provider Preventive Medicine Aerospace Medicine; PCP Family Medicine
DX: K35.80 Unspecified acute appendicitis (principal)
CPT/HCPCS: 36415; 74176; 80053; 81003; 81025; 83605; 83690; 85025; 96365; 96372; 96375; 99285; A9270; J1885; J2543

== ENCOUNTER 2024-09-22 22:20 | Observation (INO) | payer BC, SELFPAY ==
--- OUTSIDE RECORDS SUMMARY | 2024-09-22 23:41 | XMS_ITS | Clinical Summary ---
Author Organization [facility] Address [facility], [facility] [place] [address] Care Team Providers Care Furniture Assembly Supervisor Name Role Phone Deepak Taveras MD Primary Care Provider [phone] Kieran Baig MD Unavailable [phone] Allergies No known active allergies Medications vitamin, low iron, ( VITAMIN WITH IRON) 27-0.8 MG tablet Take 1 tablet by mouth daily. Active Active Problems Problem Noted Date Diagnosed Date Uterine contractions during ([facility]/HCC) 09/13/2022 Vaginal bleeding during ([facility]/HCC) 08/2022 Family History Medical History Relation Comments [...] often do you attend chur ch or latter-day services? Never 09/13/2022 Do you belong to any clubs o r organizations such as jewish groups, unions, fraternal or athletic groups, or [...] and heating? Not hard at all 09/13/2022 [facility] of Occupat ional Health - Occupational Stress [...] place to sleep or slept in a senior living (including now)? No 09/13/2022 Depression Answer Date Recor ded Last EPDS Total Score 3 09/14/2022 Last EPDS Self Harm Result Often 09/14 Comments No Sex and Gender Information Value Date Recorded Sex Assigned at Not on file Legal Sex Female 5:48 PM MECHANICAL OXIDIZER Gender Identity Not on file Sexual Orientation Straight 09/13/2022 9: 50 PM MECHANICAL OXIDIZER Last Filed Vital Signs Vital Sign Reading Time Taken Comments Blood Pressure 139/83 09/15/2022 10:58 AM MECHANICAL OXIDIZER Pulse 79 09/15/2022 10:58 AM MECHANICAL OXIDIZER Temperature 36.7 C (98.1 F) 09/15/2022 8:40 AM MECHANICAL OXIDIZER Respiratory Rate 20 09/15/2022 8:40 AM MECHANICAL OXIDIZER Oxygen Saturation 98% 09/15/2022 8:40 AM MECHANICAL OXIDIZER Inhaled Oxygen Concentration - - Weight 98.4 kg (217 lb) 09/13/2022 5:00 PM MECHANICAL OXIDIZER Height 167.6 cm (5' 6 ) 09/13/2022 5:00 PM MECHANICAL OXIDIZER Body Mass Index 35.02 09/13/2022 5:00 PM MECHANICAL OXIDIZER Plan of Treatment Health Maintenance Due Date [...] VE NON-REACT CESIA 02/05/2022 6:34 PM CDT [facility] Comment: ANTIBODIES TO HCV NOT DETECTED. DOES NOT EXCLUDE THE POSSIBILITY OF EXPOSURE TO HCV. 02/04/2022 12:3 6 PM CDT Zora Tong NP LABORATORY Final Result [facility] [address] [place] [address], [id number] from Last 3 Months or Most Recently Relevant to Health Maintenance [place] [address] [place] [address] Care Teams Furniture Assembly Supervisor Relationship Specialty Start Date End Date Deepak Taveras MD [address] [place] [address] PCP - General INTERNAL MEDICINE 02/20/21 Kieran Baig MD [address] [place] [address] [place] 03/11/22
--- OUTSIDE RECORDS SUMMARY | 2024-09-22 23:41 | XMS_ITS | Continuity of Care Document ---
Author Organization [facility] Address [address] [place] [address] [place] [address] Phone Care Team Providers Care Branch Sales And Service Representative Name Role Phone Unavailable Unavailable Unavailable Advance Directives Directive Yes / No Effective Date File Name No Information Encounters Encounter Description Practice Location Reason(s) For Visit Diagnoses Date Provider Providers Copied on Encounter [facility], [address] [place] [address] [address], [place], [place], [id number], [place] tel:[phone] [facility] [place] No Information Sep- 7-200 0 No Information Family History Family Member Type Diagnosis Age At Onset No Information Payers Payer name Insurance type Covered green party ID Authoriza tion(s) [employer] SOI CI [id number] Social History Type Description Quantity Date Captured [...]
--- OUTSIDE RECORDS SUMMARY | 2024-09-22 23:41 | XMS_ITS | Encounter Summary ---
Author Organization [facility] Address [facility] [place] [address] Care Team Providers Care Personal Property Assessor Name Role Phone Deepak Taveras MD Primary Care Provider [phone] Kieran Baig MD Unavailable [phone] Encounter Details Date Type Department Care Team (Late st Contact Info) Description 09/26/2022 Telephone [facility] [address] [facility] [place] [address] Carmen Ellis, RN Social History [...] often do you attend chur ch or taoism services? Never 09/13/2022 Do you belong to any clubs o r organizations such as adventist groups, unions, fraternal or athletic groups, or [...] and heating? Not hard at all 09/13/2022 [facility] [place] of Occupat ional Health - Occupational Stress [...] place to sleep or slept in a alf (including now)? No 09/13/2022 Depression Answer Date Recor ded Last EPDS Total Score 3 09/14/2022 Last EPDS Self Harm Result Often 09/14 Comments No Sex and Gender Information Value Date Recorded Sex Assigned at Not on file Legal Sex Female 5:48 PM URINALYSIS TECHNICIAN Gender Identity Not on file Sexual Orientation Straight 09/13/2022 9: 50 PM URINALYSIS TECHNICIAN COVID-19 Exposure Response Date Recorded In the last 10 days, have yo u been in contact with someone who was confirmed or suspected to have Coronavirus/COVID-19? No / Unsure 09/17/2022 11:20 AM URINALYSIS TECHNICIAN documented as of this encounter Functional Status [...] on filedocumented in this encounter Care Teams Personal Property Assessor Relationship Specialty Start Date End Date Deepak Taveras MD [address] [place] [id number] PCP - General INTERNAL MEDICINE 02/20/21 Kieran Baig MD [address] [place] [id number] OBGYN 03/11/22 documented as of this encounter
--- OUTSIDE RECORDS SUMMARY | 2024-09-22 23:41 | XMS_ITS | Encounter Summary ---
Author Organization [facility] Address [address] [place] [address] Care Team Providers Care Vending Supervisor Name Role Phone Deepak Taveras MD Primary Care Provider [phone] Kieran Baig MD Unavailable [phone] Encounter Details Date Type Department Care Team (Late st Contact Info) Description 12/15/2018 Abstract [facility] [address] [place] [address] , Generic MD Apoorva Social History Tobacco Use Types Packs/Day Years Used Date Smoking Tobacco: Never Assessed Comments Unknown Sex and Gender Information Value Date Recorded Sex Assigned at Not on file Legal Sex Female 5:48 PM BRAZER REPAIR AND SALVAGE Gender Identity Not on file Sexual Orientation Straight 09/13/2022 9: 50 PM BRAZER REPAIR AND SALVAGE documented as of this encounter Plan of Treatment Not on file documented as of this encounter Visit Diagnoses Not on filedocumented in this encounter Care Teams Vending Supervisor Relationship Specialty Start Date End Date Deepak Taveras MD [address] [place] [address] PCP - General INTERNAL MEDICINE 02/20/21 Kieran Baig MD [address] [place] [address] JANET 03/11/22 documented as of this encounter
[2024-09-22 23:43] VITALS: BMI 40.4
[2024-09-22 23:45] VITALS: BP 130/77; PULSE 78; RESP 18; TEMP 36.9; O2SAT 97
[2024-09-23] VITALS (9 sets, daily range): BP systolic 102–133; BP diastolic 59–82; PULSE 62–91; RESP 16–18; TEMP 36.1–36.8; O2SAT 90–96
[2024-09-23] MEDS: LACTATED RINGERS 1,000 ML 100 ML IV CONT (00:29)
[2024-09-23] MEDS: MORPHINE SULFATE (*CRX) 4 MG/ML INJ IV PUSH ×2 (00:31→04:40)
[2024-09-23] MEDS: PIPERACILLN/TAZ 3.375GM/NS50ML 3.375 GM/50 ML BAG IVPB (04:41)
--- NOTE | 2024-09-23 07:44 | PC.NURSE ---
To OR per [ ], IV [ ]. Report given to [TOM ].
--- NOTE | 2024-09-23 08:17 | WPDANESEPPF ---
Anes - Initial Pre Proc Eval Procedure: Operation Date: 09/23/24 09:00 Proposed Procedures p Robotic Appendectomy - Logan Moses MD Date/Time: 09/23/24 08:17 Surgeon: Logan Moses MD Pre Op Diagnosis: Acute appendicitis Patient Data Age: 34 Gender: F Height: 1.68 m Weight: 113.5 kg Last Vital Signs Temp 36.8 C 09/23/24 05:47 Pulse 74 09/23/24 05:47 Resp 16 09/23/24 05:47 BP 102/69 09/23/24 05:47 Pulse Ox 95 09/23/24 05:47 O2 Del Method Room Air 09/23/24 00:59 Allergies Allergy/AdvReac Type Severity Reaction Status Date / Time beet Allergy Unknown Hives Verified 09/22/24 18:39 strawberry Allergy Unknown Hives Verified 09/22/24 18:39 Home Medications ?Medication ?Instructions ?Recorded ?Confirmed ?Type citalopram 20 mg tablet 40 mg PO BID 09/23/24 09/23/24 History valproic acid 250 mg capsule 250 mg PO Q12H 09/23/24 09/23/24 History Patient hx anesthesia problems: none Family hx anesthesia problems: none Results Review: All pre-operative results and documents have been reviewed as part of the pre-operative evaluation. [facility] Past Medical History Medical History Anemia Social History Social History Smoking status: Never smoker Second hand tobacco smoke exposure: No Alcohol intake: never Substance use: current Substance use type: marijuana Do You Feel Safe in your Home?: Yes Lack of Transportation: No Lack of Food: Never True Current Housing: I Have Housing Concerned About Future Housing: No Difficulty Paying Gas/Electric Bills: No Difficulty Paying for Meds: No Currently Unemployed: No Education: Master's Degree or Higher Difficulty w/ Childcare or Family Care: No Spiritual care concerns: No Anes - Eval Final PreProcedure Day of Procedure 09/23/24 08:17 Patient weight: morbidly obese Heart: regular rate and rhythm Lungs: clear to auscultation Airway: Mallampati scale class II Neurological: alert and oriented Last oral intake: >/= 8 hours ASA classification: III Emergent: no Anesthetic plan: proceed Anesthesia type and monitoring: general ETT and standard monitoring Results Review: All pre-operative results and documents have been reviewed as part of the pre-operative evaluation. Informed Consent: The patient's anesthetic plan and its attendant risks and benefits were discussed with the patient/family/POA. Questions were solicited and answers provided to the satisfaction of the patient/family/POA.
--- NOTE | 2024-09-23 08:21 | PM.IMHP ---
H&P: HPI History of Present Illness Date/Time: 09/23/24 08:21 Chief Complaint: Acute appendicitis Narrative: Patient is a 34-year-old female presented to [facility] Emergency Room last evening with a several hour history of right flank pain. She had some diarrhea[place] [address] in the emergency room there. CT scan abdomen pelvis showed a dilated appendix with periappendiceal inflammation without perforation or periappendiceal abscess. Vital signs were stable with outside hospital. I was contacted and accepted transferred to [facility] for surgical management. Has not had previous abdominal surgery. She is otherwise healthy and does not take any blood thinners. No history of myocardial infarction, stroke, diabetes, COPD, or renal disease. Review of Systems Review of Systems: The remainder of the review of systems to include constitutional, HEENT, cardiovascular, respiratory, GI, , integumentary, musculoskeletal, endocrine, immunologic, hematologic, psychiatric, and neurologic are all negative except for which is mentioned above in the HPI. [facility] Past Medical History Medical History Anemia Social History Social History Smoking status: Never smoker Second hand tobacco smoke exposure: No Alcohol intake: never Substance use: current Substance use type: marijuana Do You Feel Safe in your Home?: Yes Lack of Transportation: No Lack of Food: Never True Current Housing: I Have Housing Concerned About Future Housing: No Difficulty Paying Gas/Electric Bills: No Difficulty Paying for Meds: No Currently Unemployed: No Education: Master's Degree or Higher Difficulty w/ Childcare or Family Care: No Spiritual care concerns: No Meds Home Medications and Allergies Home Medications ?Medication ?Instructions ?Recorded ?Confirmed ?Type citalopram 20 mg tablet 40 mg PO BID 09/23/24 09/23/24 History valproic acid 250 mg capsule 250 mg PO Q12H 09/23/24 09/23/24 History Allergies Allergy/AdvReac Type Severity Reaction Status Date / Time beet Allergy Unknown Hives Verified 09/23/24 08:19 strawberry Allergy Unknown Hives Verified 09/23/24 08:19 Vital Signs Vital Signs - 24 hr 09/22/24 23:45 09/23/24 00:59 09/23/24 05:47 Temperature 36.9 C 36.8 C Pulse Rate 78 74 Respiratory Rate 18 16 Blood Pressure 130/77 102/69 Pulse Oximetry 97 95 Oxygen Delivery Room Air Exam Const: General: comfortable and no acute distress HENMT: Ears: TM's normal bilaterally Face/Nose/Sinus: Normal nares present Mouth: Yes moist mucous membranes Eyes: General: appearance normal, both eyes and all related structures Sclera: sclerae normal Pupils: Equal, round and reactive pupils present EOM: EOMs intact bilaterally Neck: Neck: supple and no JVD Resp: Effort & Inspection: normal respiratory effort Auscultation: clear to auscultation bilaterally Cardio: Rate: regular rate Rhythm: regular rhythm GI: Other: Abdomen is obese but soft. Moderate tenderness palpation right lower quadrant. No generalized peritoneal signs. No ventral hernias. Skin: General skin exam: normal color and no rashes or lesions noted Neuro: General: gait normal Speech: normal speech Motor exam (neuro): 5/5 motor strength present throughout Sensory Exam: normal sensation Extrem: General: normal to inspection Psych: Mental Status: mental status grossly normal Affect: normal affect H&P: Results Imaging CT scan - abdomen: Radiologist's impression: CT Scan Report Signed Patient: Josie Qiu : 1990 MR#: [id number] Age: 34 Acct:[id number] [facility] Date: 09/22/24Attending Dr: Ordering Physician: Amari Peterson MD Date of Service: 09/22/24 Procedure(s): CT abdomen pelvis wo con Accession Number(s): [id number] cc: Amari Peterson MD; Kieran Baig MD~ EXAMINATION: CT abdomen pelvis wo con DATE: 09/22/2024 20:44 INDICATION: Right flank pain SINCE 1530 HRS TODAY. TECHNIQUE: Computed tomography (CT) of the abdomen and pelvis was performed without intravenous contrast. Automated exposure control and iterative reconstruction technique were employed. The dose-length product was 1300.86 mGy-cm. COMPARISON: None. FINDINGS: Lower thorax: Minimal scar/atelectasis in the peripheral right middle lobe. Small hiatal hernia. Liver: Normal. Biliary/Gallbladder: Cholelithiasis. No inflammatory change. No bile duct dilation. Pancreas: No mass or duct dilation. Spleen: Normal. Adrenals:No mass. Kidneys: No suspicious mass, obstructing stone, or hydronephrosis. Punctate right midpole calcification. 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 GI tract: No small or large bowel dilation. Dilated appendix with mild surrounding inflammatory change. Mesentery/Peritoneum: No ascites, mass, or free air. Retroperitoneum: No mass. Pelvis: Normal urinary bladder, uterus, and ovaries. 4.3 cm simple appearing right ovarian cyst. Soft Tissues: Small uncomplicated appearing fat-containing periumbilical hernia. Bones: No acute osseous finding. IMPRESSION: Cholelithiasis, without CT evidence of cholecystitis. No CT evidence of obstructive uropathy. Acute uncomplicated appendicitis. Reviewed, dictated and finalized at location K. Assessment and Plan Assessment and plan (1) Acute appendicitis: Qualifiers: Acute appendicitis type: with localized peritonitis Appendicitis abscess presence: without abscess Appendicitis gangrene presence: without gangrene Appendicitis perforation presence: without perforation Qualified Code(s): K35.30 - Acute appendicitis with localized peritonitis, without perforation or gangrene Code(s): K35.80 - Unspecified acute appendicitis Status: Inactive Assessment and Plan: Patient appears to have perforated acute appendicitis by imaging and by exam. She has been started on broad-spectrum IV antibiotics and kept NPO. She was transferred from the [facility] Emergency Room to [facility] and was stable overnight. Plan is to take her to the on room this morning for a robotic assisted laparoscopic appendectomy possible open. Risks, benefits, indications, and expected outcomes were discussed in detail with the patient and/or family. They understand and I have answered all other questions. They wished to proceed with surgery as outlined above.
[2024-09-23] MEDS: LACTATED RINGERS 1,000 ML 30 ML IV CONT (08:22)
--- NOTE | 2024-09-23 08:26 | WPDHPUPDATE1 ---
History and Physical Update Update Date/Time: 09/23/24 08:26 History and Physical has been reviewed, including an updated exam of the patient. There are NO changes in the patient's condition. Risks, benefits, and alternatives have been discussed and questions answered. Patient agrees to proceed with procedure.
[2024-09-23] MEDS: LIDO 1%/EPINEPHRINE 1:100,000 20 ML VIAL INFILTRATE (08:57)
[2024-09-23] MEDS: BUPivacaine HCL 0.5% 10 ML AMP 20 ML INFILTRATE (09:01)
[2024-09-23] MEDS: KETOROLAC 30 MG/ML VIAL (*BKC) IV PUSH (09:44)
--- NOTE | 2024-09-23 10:00 | W.PM.PROC2 ---
Procedure Note - Detailed Date of Procedure 09/23/24 Pre-op Diagnosis Acute appendicitis Post-op Diagnosis Same Procedure Performed Robotic assisted laparoscopic appendectomy Surgeon Logan Moses MD Health Counselor Yuli Shaw [facility] Anesthesia General Indications Patient is a 34-year-old female presented with a 1 day history of worsening right lower quadrant abdominal pain and right flank pain. She was found have acute appendicitis on CT scan. White blood count is 16,000. She presents now for an emergent laparoscopic robotic assisted appendectomy Findings Patient had acute appendix without perforation or gangrene of the appendix. No periappendiceal abscess. The cecum appeared to be normal. She did have a non ruptured right ovarian cyst which she had to be a simple cyst. This was not addressed. It correlates with the simple cyst seen on CT scan. Description of Procedure After informed consent was obtained patient brought to the operating room she was placed supine position and general endotracheal anesthesia was administered. The abdomen was then prepped and draped usual sterile fashion after placement of a Matias catheter. A time-out was then performed correctly identifying the patient as well as procedure to be performed. She was already on scheduled IV antibiotics. I then proceeded to enter the abdomen left upper quadrant utilizing a 5mm Optiview port. Once inside the abdomen insufflated to adequate pneumoperitoneum of 15mmHg of CO2. I then placed 8mm robotic trocar ports in the suprapubic region, just to the left of the umbilicus and in the right upper quadrant. The Managed by Qi robot was then brought to the patient's bedside and docked. Robotic instruments were then advanced into the abdomen under direct visualization. I then scrubbed out the procedure sent down the robotic console to perform the dissection. The 5mm left upper quadrant trocar port was switched out to a 10mm bedside advertising assistant trocar port under direct visualization. The appendix was visualized in the right lateral abdomen. There some peritoneal attachments into the right lateral sidewall. These were divided with the robotic scissor cautery to mobilize the appendix. I did about that if I the base of the appendix. The cecum appeared to be normal without evidence of inflammation. I then made a defect through the mesoappendix just at the base of the appendix utilizing the [place] dissected. I then further divided some periappendiceal fatty tissue around the base of the appendix. I then divided the mesoappendix utilizing electrocautery and the use of robotic clips. I then ligated the appendix flush with the cecum utilizing 0 silk suture tied robotically. A robotic clip was then placed distally and then the appendix was divided with robotic michelle between the 2 ligatures. I then proceeded to imbricate the appendiceal stump after treating with electrocautery at the mucosa at the appendiceal stump. This is done with a running 3-0 absorbable V lock suture in a Lembert fashion. At this point the appendix was then placed into an Endo-Catch bag and brought out through the 10mm left upper quadrant trocar port site. Hemostasis was good. Robotic instruments were then removed from the abdomen and Timmy robot was undocked from the patient's bedside. I then scrubbed back into the procedure and the remove the appendix from the abdomen inside the Endo-Catch bag. It was passed off table sent to pathology for examination. The 10mm left upper quadrant trocar port fascial defect was then closed utilizing 0 Vicryl suture at the fascia utilizing the suture assist device. All the 8mm robotic trocar ports were then removed under direct visualization and the port sites were hemostatic. The abdomen is then allowed to decompress. The incisions then irrigated sterile saline solution hemostasis was good. All the port sites were then closed at the skin level utilizing a running subcuticular 4-0 Monocryl suture. The incisions were then cleaned the skin glue was applied. The patient tolerated the procedure well no complications. All sponges, needles, and instrument counts were correct at the end procedure. EBL was 10___cc. The patient was awakened and taken to recovery in stable and satisfactory condition. Implants None Estimated Blood Loss 10 Urine Output 200 Drains No Packing No Pathology Yes (Appendix sent to pathology) Complications No immediate complications Condition Stable Disposition PACU [facility] Billing Surgery - Charge Forward: Surgery Billing
--- NOTE | 2024-09-23 10:43 | PC.NURSE ---
Returned from OR per [ ]. Report received from [Nathalia].
[2024-09-23] MEDS: HYDROcodone/acetaminophen (*CRX) 5-325 MG TABLET 1 TAB PO ×2 (11:02→14:32)
--- NOTE | 2024-09-23 14:46 | PM.DS ---
DS: Admitting Diagnosis Discharge Date 09/23/2024 Admitting Diagnosis acute appendicitis DS: Discharge Diagnosis Discharge Diagnosis (1) Acute appendicitis with localized peritonitis, without perforation or abscess: Code(s): K35.30 - Acute appendicitis with localized peritonitis, without perforation or gangrene Status: Acute DS: Summary Hospital Course Reason for hospitalization: This is a 34 yo F who presented to [facility] ER last night with several hour history of right flank pain and diarrhea. Workup showed WBC count of 16,[address] evidence of acute appendicitis without abscess. She was transferred and directly admitted to [facility] for surgical evaluation. Hospital Course: She was started on broad-spectrum IV antibiotics. After discussion, she was taken to the OR and underwent robotic-assisted laparoscopic appendectomy by Dr. Hernandez on 09/23/24. The appendix was inflamed but there was no gangrene or perforation. She was transferred back to the medical floor postoperatively and she was able to tolerate liquids well. Her diet was advanced as tolerated. She has some incisional soreness, which is controlled with Neshkoro. No significant abdominal pain, nausea, or vomiting. She is stable at this time for discharge. Follow-up in 2 weeks. Discharge instructions discussed with the patient and all questions answered. Pathology will be discussed as an outpatient. Status at Discharge Functional status at discharge: independent ambulation Overall status at discharge: patient is progressing back to baseline Time Spent with Patient Time attestation: Total time spent providing and/or coordinating discharge services: Time spent: Less than 30 minutes Exam Const: General: comfortable and no acute distress Cardio: Rhythm: regular rhythm GI: Inspection: non-distended, incision (incisions dry and intact) and other (gauze at LUQ port site with minimal serosanguineous drainage) GI Palp: Yes Soft to palpation, Yes Tenderness to palpation present (GI) (incisional) and No Guarding due to palpation present (GI) Auscultation: normal bowel sounds Neuro: General: moves all extremities and no focal motor deficits Extrem: General: no calf tenderness and no edema Psych: Mental Status: mental status grossly normal Insight: Good insight present (Psych) DS: Data Data Completed and Pending Pending studies at discharge: Pending at discharge 09/23/24 09:10 Surgical [PTH] Routine Procedures/Treatments: Procedures Operation Date: 09/23/24 09:00 Actual Procedure Side Surgeon p Robotic Appendectomy Not Applicable Logan Hernandez MD Discharge Plan Discharge Attending physician on discharge: Logan Hernandez Discharging Clinician: Ivelisse Almazan Anticipated Discharge Date/Time: 09/23/24 14:43 Patient Disposition: Home, Self-Care Activity: no driving and other - see discharge instructions Diet: as tolerated and regular Wound Care Instructions: incision open to air Discharge Instructions: DISCHARGE INSTRUCTION SHEET FOR HERNIA, GALLBLADDER AND APPENDIX SURGERIES DR. HERNANDEZ 1. May shower in 24 hours, no soaking in bath x 2weeks. 2. Call office for: Wound increasingly painful or bleeding Vomiting Fever of greater than 101 degrees 3. If no bowel movement for three days, take 1 oz. (30 ml) Milk of Magnesia or MiraLax 17g 1 to 2 times daily. 4. No heavy lifting > 10-15 pounds x 2 weeks 5. No driving for 3 days or while taking narcotic pain medications. 6. Ice to surgical site for 48 hours (30 min on, then 30 min off). 7. Up walking 10-30 minutes three times per day. 8. Resume previous home medications. 9. Follow-up with Dr. Hernandez in 2 weeks, call to make the appointment ([phone]) 10. Oral pain medications prescription sent to pharmacy. Take Tylenol 500mg every 6 hours and Ibuprofen 600mg every 6 hours for the first 2 days, then as needed. 11. NUTRITION: Start out by drinking fluids and increase your diet as tolerated. If you experience nausea, try dry toast, crackers, and 7-UP. If nausea or vomiting persists, contact your surgeon?s office. Patient Instructions: Antibiotic Form Patient Language: Vietnamese Stand Alone Forms: General Discharge Information Follow-up/Referrals: Logan Hernandez MD [Physician] - 2 Weeks Discharge Medications: New hydrocodone-acetaminophen 5-325 mg Tablet 1 tablet PO Q6H PRN (Reason: Pain Rated 4-6) Qty: 10 0RF Continued valproic acid 250 mg capsule 250 mg PO Q12H citalopram 20 mg tablet 40 mg PO DAILY Date of admission: 09/22/24 23:38 Primary Care Provider: Kieran Baig Admitting Provider: Logan Hernandez Attending physician on admission: Logan Hernandez Condition: Stable Quality If No VTE Prophylaxis Answer both mechanical and pharmacologic: Reason no mechanical VTE proph: low risk/not indicated Reason no pharmacologic proph: medical contraindication (surgery)
--- OUTSIDE RECORDS SUMMARY | 2024-09-24 07:39 | XMS_ITS | Encounter Summary ---
Author Organization [facility] Address Count includes the [facility] [place] [address] Care Team Providers Care Resident Care Spec Name Role Phone Deepak Taveras MD Primary Care Provider [phone] Kieran Baig MD Unavailable [phone] Encounter Details Date Type Department Care Team (Late st Contact Info) Description 09/26/2022 Telephone [facility] [address] [facility] [place] [address] Carmen Ellis, RN Social History [...] often do you attend chur ch or adventist services? Never 09/13/2022 Do you belong to any clubs o r organizations such as anabaptist groups, unions, fraternal or athletic groups, or [...] and heating? Not hard at all 09/13/2022 [facility] of Occupat ional Health - Occupational Stress [...] on file Legal Sex Female 5:48 PM TRUCK CHAUFFEUR Gender Identity Not on file Sexual Orientation Straight 09/13/2022 9: 50 PM TRUCK CHAUFFEUR COVID-19 Exposure Response Date Recorded In the last 10 days, have yo u been in contact with someone who was confirmed or suspected to have Coronavirus/COVID-19? No / Unsure 09/17/2022 11:20 AM TRUCK CHAUFFEUR documented as of this encounter Functional Status [...] on filedocumented in this encounter Care Teams Resident Care Spec Relationship Specialty Start Date End Date Deepak Taveras MD [address] [place] [id number] PCP - General INTERNAL MEDICINE 02/20/21 Kieran Baig MD [address] [facility] [place] [id number] OBGYN 03/11/22 documented as of this encounter
--- OUTSIDE RECORDS SUMMARY | 2024-09-24 07:39 | XMS_ITS | Clinical Summary ---
Author Organization [facility] Address [facility] [place] [address] Care Team Providers Care Carpenter Mold Name Role Phone Deepak Taveras MD Primary Care Provider [phone] Kieran Baig MD Unavailable [phone] Allergies No known active allergies Medications [...] often do you attend chur ch or latter day services? Never 09/13/2022 Do you belong to [...] and heating? Not hard at all 09/13/2022 [facility] of Occupat ional Health - Occupational [...] place to sleep or slept in a correction (including now)? No 09/13/2022 Depression Answer Date Recor ded Last EPDS Total Score 3 09/14/2022 Last EPDS Self Harm Result Often 09/14 Comments No Sex and Gender Information Value Date Recorded Sex Assigned at Not on file Legal Sex Female 5:48 PM WOODWORKING MACHINE OFFBEARER Gender Identity Not on file Sexual Orientation Straight 09/13/2022 9: 50 PM WOODWORKING MACHINE OFFBEARER Last Filed Vital Signs Vital Sign Reading Time Taken Comments Blood Pressure 139/83 09/15/2022 10:58 AM WOODWORKING MACHINE OFFBEARER Pulse 79 09/15/2022 10:58 AM WOODWORKING MACHINE OFFBEARER Temperature 36.7 C (98.1 F) 09/15/2022 8:40 AM WOODWORKING MACHINE OFFBEARER Respiratory Rate 20 09/15/2022 8:40 AM WOODWORKING MACHINE OFFBEARER Oxygen Saturation 98% 09/15/2022 8:40 AM WOODWORKING MACHINE OFFBEARER Inhaled Oxygen Concentration - - Weight 98.4 kg (217 lb) 09/13/2022 5:00 PM WOODWORKING MACHINE OFFBEARER Height 167.6 cm (5' 6 ) 09/13/2022 5:00 PM WOODWORKING MACHINE OFFBEARER Body Mass Index 35.02 09/13/2022 5:00 PM WOODWORKING MACHINE OFFBEARER Plan of Treatment Health Maintenance Due Date [...] VE NON-REACT CESIA 02/05/2022 6:34 PM CDT [facility] Comment: ANTIBODIES TO HCV NOT DETECTED. DOES NOT EXCLUDE THE POSSIBILITY OF EXPOSURE TO HCV. 02/04/2022 12:3 6 PM CDT Zora Tong NP LABORATORY Final Result [facility] [address] [place] [address], [id number] from Last 3 Months or Most Recently Relevant to Health Maintenance [place] [address] [address] [place] [address] Care Teams Carpenter Mold Relationship Specialty Start Date End Date Deepak Taveras MD [address] [place] [address] PCP - General INTERNAL MEDICINE 02/20/21 Kieran Baig MD [address] [facility] [address] [place], [place] [address] OBLILA 03/11/22
--- OUTSIDE RECORDS SUMMARY | 2024-09-24 07:39 | XMS_ITS | Encounter Summary ---
Author Organization [facility] Address [address] [place] [address] Care Team Providers Care Toll Line Repairer Name Role Phone Deepak Taveras MD Primary Care Provider [phone] Kieran Baig MD Unavailable [phone] Encounter Details Date Type Department Care Team (Late st Contact Info) Description 12/15/2018 Abstract [facility] [address] [place] [address] , Generic MD Apoorva Social History Tobacco Use Types Packs/Day Years Used Date Smoking Tobacco: Never Assessed Comments Unknown Sex and Gender Information Value Date Recorded Sex Assigned at Not on file Legal Sex Female 5:48 PM PLANT CHANGER Gender Identity Not on file Sexual Orientation Straight 09/13/2022 9: 50 PM PLANT CHANGER documented as of this encounter Plan of Treatment Not on file documented as of this encounter Visit Diagnoses Not on filedocumented in this encounter Care Teams Toll Line Repairer Relationship Specialty Start Date End Date Deepak Taveras MD [address] [place] [phone] PCP - General INTERNAL MEDICINE 02/20/21 Kieran Baig MD [address] [place] [address] JANET 03/11/22 documented as of this encounter
== END 2024-09-23 15:25 | disposition home or self-care (01) ==
PROVIDERS: Admitting Provider Surgery; PCP Family Medicine; Visit Provider Surgery
PROC: 0FT44ZZ Resection of Gallbladder, Percutaneous Endoscopic Approach (ICD-10-PCS; CPT 47562; principal; 2024-09-23 09:00)
DX: K35.32 Acute appendicitis with perforation, localized peritonitis, and gangrene, without abscess (principal); K36 Other appendicitis; K38.8 Other specified diseases of appendix; N83.291 Other ovarian cyst, right side; E66.01 Morbid (severe) obesity due to excess calories; Z68.41 Body mass index [BMI] 40.0-44.9, adult; Z79.899 Other long term (current) drug therapy
CPT/HCPCS: 44970; S2900; 88304; 96365; 96375; 96376; A9270; G0378; J1100; J1596; J1885; J2004; J2250; J2270; J2405; J2543; J2704; J2710; J7120

== ENCOUNTER 2025-01-14 09:35 | Outpatient (CLI) | payer OTHER, SELFPAY ==
--- OUTSIDE RECORDS SUMMARY | 2025-01-14 09:41 | XMS_ITS | Clinical Summary ---
Author Organization [facility] Address [facility] [place] [address] Care Team Providers Care Director Manufacturing Engineering Name Role Phone Deepak Taveras MD Primary Care Provider [phone] Kieran Baig MD Unavailable [phone] Allergies No known active allergies Medications vitamin, low iron, ( VITAMIN WITH IRON) 27-0.8 MG tablet Take 1 tablet by mouth daily. Active Active Problems Problem Noted Date Diagnosed Date Uterine contractions during (HHS/HCC) 09/13/2022 Vaginal bleeding during (HHS/HCC) 08/2022 Encounters Date Type Department Care Team Description 11/27/2024 7:48 AM CDT - 11/27/2024 11:59 PM CDT Hospital Encounter [facility] [address] [place] [address] Kenya Wells PA-C Discharge Disposition: Home or Self Care (Routine Discharge) 11/27/2024 Travel from Last 3 Months Family History Medical History Relation Comments No [...] 09/13/2022 How often do you attend chur or roman catholic services? Never 09/13/2022 Do you belong to any clubs o r organizations such as restorationist groups, unions, fraternal or athletic groups, or [...] and heating? Not hard at all 09/13/2022 [facility] of Occupat ional Health - Occupational Stress [...] the money to buy more. Never true 03/07/20 23 Within the past 12 months, t [...] place to sleep or slept in a retirement (including now)? No 09/13/2022 Depression Answer Date Recor ded Last EPDS Total Score 3 09/14/2022 Last EPDS Self Harm Result Often 09/14 Comments No Sex and Gender Information Value Date Recorded Sex Assigned at Female 11/08/2024 4:29 PM CDT Legal Sex Female 5:48 PM SIGN ERECTOR AND REPAIRER Gender Identity Not on file Sexual Orientation Straight 09/13/2022 9: 50 PM SIGN ERECTOR AND REPAIRER Last Filed Vital Signs Vital Sign Reading Time Taken Comments Blood Pressure 139/83 09/15/2022 10:58 AM SIGN ERECTOR AND REPAIRER Pulse 79 09/15/2022 10:58 AM SIGN ERECTOR AND REPAIRER Temperature 36.7 C (98.1 F) 09/15/2022 8:40 AM SIGN ERECTOR AND REPAIRER Respiratory Rate 20 09/15/2022 8:40 AM SIGN ERECTOR AND REPAIRER Oxygen Saturation 98% 09/15/2022 8:40 AM SIGN ERECTOR AND REPAIRER Inhaled Oxygen Concentration - - Weight 98.4 kg (217 lb) 09/13/2022 5:00 PM SIGN ERECTOR AND REPAIRER Height 167.6 cm (5' 6) 09/13/2022 5:00 PM SIGN ERECTOR AND REPAIRER Body Mass Index 35.02 09/13/2022 5:00 PM SIGN ERECTOR AND REPAIRER Plan of Treatment Health Maintenance Due Date [...] Cancer Screening with HPV 2021 COVID-19 Vaccine ( - season) 2024 12/17/2020, 11/26/2020 Hepatitis C Completed 02/04/2022 HPV Vaccines Aged [...] 5 Years) and At-Risk Patients (6 to 49 Years) Aged Out No longer eligible based on patient's age to complete this topic RSV Immunizations Under 20 Months Aged Out No longer eligible based on patient's age to complete this topic Procedures Procedure Name Priority Date/Time Associated Diagnosis Comments US PELVIC NON OB COMP TA Routine 11/27/2024 8:50 AM CDT Ovarian cyst HEPATITIS C ANTIBODY Routine 02/04/2022 12:36 PM CDT Family history of blood clots Encounter for supervision of other normal , unspecified trimester ([facility]) from Last 3 Months or Most Recently Relevant to Health Maintenance Results * US PELVIC NON OB COMP TA (11/27/2024 8:50 AM CDT) Anatomical Region Laterality Modality Pelvis Ultrasound 11/28/2024 1:20 PM CDT Impressions 11/28/2024 1:24 PM CDT IMPRESSION: 1. 4.4 cm fundal fibroid. 2. Unremarkable appearing ovaries. Ordered By: KENYA WELLS Interpreted By: Hakeem Wagner MD, 11/28/2024 1:20 PM Narrative 11/28/2024 1:[address] PM [address] [place] [address] Examination: Pelvic ultrasound. Exam time: 0814 hours. Clinical history: Follow-up of right ovarian cyst. Comparison: CT of the abdomen and pelvis, 09/22/2024 ([facility]). Technique: Transabdominal grayscale and color Doppler images including spectral analysis. The patient declined endovaginal scanning. Findings: The uterus measures 8.2 cm in length. There is some heterogeneity in the myometrial echotexture with an approximately 4.4 cm mildly hyperechoic intramural mass in the fundus compatible with a fibroid. The endometrial stripe is not well-visualized transabdominally but is not obviously thickened. Both ovaries are identified. The right ovary measures 4.7 cm in greatest dimension. The left ovary measures 3.6 cm in greatest dimension. Flow to both ovaries is documented on color Doppler with normal appearing spectra. A few follicles are present. Right ovarian cyst present on CT has involuted. No adnexal mass or fluid collection is identified. Procedure Note Hakeem Wagner MD - 11/28/[address] [place] [address] Examination: Pelvic ultrasound. Exam time: 0814 hours. Clinical history: Follow-up of right ovarian cyst. Comparison: CT of the abdomen and pelvis, 09/22/2024 ([facility]). Technique: Transabdominal grayscale and color Doppler images includingspectral analysis. The patient declined endovaginal scanning. Findings: The uterus measures 8.2 cm in length. There is someheterogeneity in the myometrial echotexture with an approximately 4.4 cmmildly hyperechoic intramural mass in the fundus compatible with afibroid. The endometrial stripe is not well- visualized transabdominallybut is not obviously thickened. Both ovaries are identified. The rightovary measures 4.7 cm in greatest dimension. The left ovary measures 3.6cm in greatest dimension. Flow to both ovaries is documented on colorDoppler with normal appearing spectra. A few follicles are present. Rightovarian cyst present on CT has involuted. No adnexal mass or fluidcollection is identified. IMPRESSION: 1. 4.4 cm fundal fibroid. 2. Unremarkable appearing ovaries. Ordered By: KENYA WELLS Interpreted By: Hakeem Wagner MD, 11/28/2024 1:20 PM us Kenya Wells PA-C ULTRASOUND Final Resul t * HEPATITIS C ANTIBODY (02/04/2022 12:36 PM CDT) HEPATITIS C AB NON-REACTI VE NON-REACT CESIA 02/05/2022 6:34 PM CDT [facility] Comment: ANTIBODIES TO HCV NOT DETECTED. DOES NOT EXCLUDE THE POSSIBILITY OF EXPOSURE TO HCV. 02/04/2022 12:3 6 PM CDT us Zora Tong NP LABORATORY Final Result [facility] [address] [place] [address], [id number] from Last 3 Months or Most Recently Relevant to Health Maintenance Insurance MEDICAID Care Teams Director Manufacturing Engineering Relationship Specialty Start Date End Date Deepak Taveras MD [address] [place] [address] PCP - General INTERNAL MEDICINE 8/14/21 Kieran Baig MD [address] [facility] [place] [address] OBRachel 03/11/22
--- OUTSIDE RECORDS SUMMARY | 2025-01-14 09:41 | XMS_ITS | Encounter Summary ---
Author Organization [facility] Address [facility] [place] [address] Care Team Providers Care Mender Knit Goods Name Role Phone Deepak Taveras MD Primary Care Provider [phone] Kieran Baig MD Unavailable [phone] Encounter Details Date Type Department Care Team (Late st Contact Info) Description 09/26/[address] [facility] [address] [facility] [place] [address] Carmen Ellis, RN Social History [...] often do you attend chur ch or confucianist services? Never 09/13/2022 Do you belong to any clubs o r organizations such as hindu groups, unions, fraternal or athletic groups, or [...] and heating? Not hard at all 09/13/2022 [facility] of Occupat ional Health - Occupational Stress [...] place to sleep or slept in a detention (including now)? No 09/13/2022 Depression Answer Date Recor ded Last EPDS Total Score 3 09/14/2022 Last EPDS Self Harm Result Often 09/14 Comments No Sex and Gender Information Value Date Recorded Sex Assigned at Female 11/08/2024 4:29 PM CDT Legal Sex Female 5:48 PM MONTESSORI LEAD TEACHER Gender Identity Not on file Sexual Orientation Straight 09/13/2022 9: 50 PM MONTESSORI LEAD TEACHER COVID-19 Exposure Response Date Recorded In the last 10 days, have yo u been in contact with someone who was confirmed or suspected to have Coronavirus/COVID-19? No / Unsure 09/17/2022 11:20 AM MONTESSORI LEAD TEACHER documented as of this encounter Functional Status [...] any question or concern about bottle feeding infant. Advised to call ob dept anytimewith any question or concern. documented in this encounter Plan of Treatment Not on file documented as of this encounter Visit Diagnoses Not on filedocumented in this encounter Care Teams Mender Knit Goods Relationship Specialty Start Date End Date Deepak Taveras MD [address] [place] [address] PCP - General INTERNAL MEDICINE 02/20/21 Kieran Baig MD [address] [facility] [place] [phone] OBGYN 03/11/22 documented as of this encounter
--- OUTSIDE RECORDS SUMMARY | 2025-01-14 09:41 | XMS_ITS | Encounter Summary ---
Author Organization [facility] Address [facility] [place] [address] Care Team Providers Care Signal And Communications Maintainer Name Role Phone Deepak Taveras MD Primary Care Provider [phone] Kieran Baig MD Unavailable [phone] Encounter Details Date Type Department Care Team (Late st Contact Info) Description 12/15/2018 Abstract [facility] [address] [place] [id number] , Generic MD Apoorva Social History Tobacco Use Types Packs/Day Years Used Date Smoking Tobacco: Never Assessed Comments Unknown Sex and Gender Information Value Date Recorded Sex Assigned at Female 11/08/2024 4:29 PM CDT Legal Sex Female 5:48 PM SUPERVISOR KEYMODULE ASSEMBLY Gender Identity Not on file Sexual Orientation Straight 09/13/2022 9: 50 PM SUPERVISOR KEYMODULE ASSEMBLY documented as of this encounter Plan of Treatment Not on file documented as of this encounter Visit Diagnoses Not on filedocumented in this encounter Care Teams Signal And Communications Maintainer Relationship Specialty Start Date End Date Deepak Taveras MD [address] [place] [address] PCP - General INTERNAL MEDICINE 02/20/21 Kieran Baig MD [address] [place] [address] JANET 03/11/22 documented as of this encounter
[2025-01-14 10:19] LABS: Alanine Aminotransferase 25 U/L (6-35); Albumin Level 4.0 g/dL (3.5-5.1); Alkaline Phosphatase 100 U/L (38-126); Anion Gap 5 mmol/L (4-12); Aspartate Amino Transferase 31 U/L (14-36); Bilirubin,Total 0.9 mg/dL (0.2-1.3); Blood Urea Nitrogen 10 mg/dL (7-17); Calcium 8.5 mg/dL (8.4-10.2); Carbon Dioxide 26 mmol/L (22-30); Chloride 106 mmol/L (98-107); Cholesterol 169 mg/dL (0-200); Estimated Glomerular Filt Rate > 60; Glucose 82 mg/dL (65-110); HDL Direct 34 mg/dL; Osmolality Calculated 282 mOsm/kg (285-295); Potassium 4.3 mmol/L (3.4-5.0); Sodium 137 mmol/L (137-145); Total Protein 7.0 g/dL (6.3-8.2); Triglycerides 94 mg/dL (<150)
== END 2025-01-14 09:36 | disposition home or self-care (01) ==
PROVIDERS: PCP Family Medicine; Visit Provider Physician Assistant
DX: Z00.00 Encounter for general adult medical examination without abnormal findings (principal)
CPT/HCPCS: 36415; 80053; 80061

== ENCOUNTER 2025-01-27 18:48 | Emergency (ER) | payer OTHER, SELFPAY ==
[2025-01-27 18:48] VITALS: BP 118/79; PULSE 84; RESP 16; TEMP 36.7; O2SAT 96
--- OUTSIDE RECORDS SUMMARY | 2025-01-27 18:57 | XMS_ITS | Encounter Summary ---
Author Organization [facility] Address [facility] [place] [address] Care Team Providers Care Shipping Point Inspector Name Role Phone Deepak Taveras MD Primary Care Provider [phone] Kieran Baig MD Unavailable [phone] Encounter Details Date Type Department Care Team (Late st Contact Info) Description 12/15/2018 Abstract [facility] CONVERSION [address] [place] [id number] , Generic MD Apoorva Social History Tobacco Use Types Packs/Day Years Used Date Smoking Tobacco: Never Assessed Comments Unknown Sex and Gender Information Value Date Recorded Sex Assigned at Female 11/08/2024 4:29 PM CDT Legal Sex Female 5:48 PM PLANT OPERATOR/SHIFT SUPERVISOR Gender Identity Not on file Sexual Orientation Straight 09/13/2022 9: 50 PM PLANT OPERATOR/SHIFT SUPERVISOR documented as of this encounter Plan of Treatment Not on file documented as of this encounter Visit Diagnoses Not on filedocumented in this encounter Care Teams Shipping Point Inspector Relationship Specialty Start Date End Date Deepak Taveras MD [address] [place] [address] PCP - General INTERNAL MEDICINE 02/20/21 Kieran Baig MD [address] [place] [address] JANET 03/11/22 documented as of this encounter
--- OUTSIDE RECORDS SUMMARY | 2025-01-27 18:57 | XMS_ITS | Continuity of Care Document ---
Author Organization [facility] Address [address] [place] [address] [place] [address] Phone Care Team Providers Care Land Surveyor Assistant Name Role Phone Unavailable Unavailable Unavailable Advance Directives Directive Yes / No Effective Date File Name No Information Encounters Encounter Description Practice Location Reason(s) For Visit Diagnoses Date Provider Providers Copied on Encounter [facility], [address] [place] [address] [address], [place], [place], [id number], [place] tel:[phone] [facility] No Information Sep- 7-200 0 No Information Family History Family Member Type Diagnosis Age At Onset No Information Payers Payer name Insurance type Covered green party ID Authoriza tion(s) [employer] SOI CI [id number] Social History Type Description Quantity Date Captured [...]
--- OUTSIDE RECORDS SUMMARY | 2025-01-27 18:57 | XMS_ITS | Encounter Summary ---
Author Organization [facility] Address [facility] [place] [address] Care Team Providers Care Beekeeper Name Role Phone Deepak Taveras MD Primary Care Provider [phone] Kieran Baig MD Unavailable [phone] Encounter Details Date Type Department Care Team (Late st Contact Info) Description 09/26/2022 Telephone [facility] [address] [facility] [place] [address] Carmen Ellis, RN Social History [...] often do you attend chur ch or christian services? Never 09/13/2022 Do you belong to any clubs o r organizations such as advent groups, unions, fraternal or athletic groups, or [...] and heating? Not hard at all 09/13/2022 [facility] [place] of Occupat ional Health - Occupational Stress [...] place to sleep or slept in a half-way (including now)? No 09/13/2022 Depression Answer Date Recor ded Last EPDS Total Score 3 09/14/2022 Last EPDS Self Harm Result Often 09/14 Comments No Sex and Gender Information Value Date Recorded Sex Assigned at Female 11/08/2024 4:29 PM CDT Legal Sex Female 5:48 PM VETERINARY LABORATORY DIAGNOSTICIAN Gender Identity Not on file Sexual Orientation Straight 09/13/2022 9: 50 PM VETERINARY LABORATORY DIAGNOSTICIAN COVID-19 Exposure Response Date Recorded In the last 10 days, have yo u been in contact with someone who was confirmed or suspected to have Coronavirus/COVID-19? No / Unsure 09/17/2022 11:20 AM VETERINARY LABORATORY DIAGNOSTICIAN documented as of this encounter Functional Status [...] on filedocumented in this encounter Care Teams Beekeeper Relationship Specialty Start Date End Date Deepak Taveras MD [address] [place] [address] PCP - General INTERNAL MEDICINE 02/20/21 Kieran Baig MD [address] [facility] [place] [address] OBGYN 03/11/22 documented as of this encounter
--- OUTSIDE RECORDS SUMMARY | 2025-01-27 18:57 | XMS_ITS | Clinical Summary ---
Author Organization [facility] Address [facility] [place] [address] Care Team Providers Care Showroom Manager Name Role Phone Deepak Taveras MD Primary Care Provider [phone] Kieran Baig MD Unavailable [phone] Allergies No known active allergies Medications vitamin, low iron, ( VITAMIN WITH IRON) 27-0.8 MG tablet Take 1 tablet by mouth daily. Active Active Problems Problem Noted Date Diagnosed Date Uterine contractions during (HHS/HCC) 09/13/2022 Vaginal bleeding during (HHS/HCC) 08/2022 Encounters Date Type Department Care Team Description 11/27/2024 7:48 AM CDT - 11/27/2024 11:59 PM CDT Hospital Encounter [facility] [address] [place] [address] Kenya Wells PA-C Discharge Disposition: Home or [...] How often do you attend chur or episcopal services? Never 09/13/2022 Do you belong to any clubs o r organizations such as jain groups, unions, fraternal or athletic groups, or [...] and heating? Not hard at all 09/13/2022 [facility] Occupat ional Health - Occupational [...] PM CDT Legal Sex Female 5:48 PM HOGSHEAD HAND Gender Identity Not on file Sexual Orientation Straight 09/13/2022 9: 50 PM HOGSHEAD HAND Last Filed Vital Signs Vital Sign Reading Time Taken Comments Blood Pressure 139/83 09/15/2022 10:58 AM HOGSHEAD HAND Pulse 79 09/15/2022 10:58 AM HOGSHEAD HAND Temperature 36.7 C (98.1 F) 09/15/2022 8:40 AM HOGSHEAD HAND Respiratory Rate 20 09/15/2022 8:40 AM HOGSHEAD HAND Oxygen Saturation 98% 09/15/2022 8:40 AM HOGSHEAD HAND Inhaled Oxygen Concentration - - Weight 98.4 kg (217 lb) 09/13/2022 5:00 PM HOGSHEAD HAND Height 167.6 cm (5' 6) 09/13/2022 5:00 PM HOGSHEAD HAND Body Mass Index 35.02 09/13/2022 5:00 PM HOGSHEAD HAND Plan of Treatment Health Maintenance Due Date Last Done Comments Cervical Cancer Screening Pap Smear (Age 30 to 64) Every 3 Years 1991 Annual Physical 1994 DTaP, Tdap and Td Vaccines (1 - Tdap) 2010 09/08/1995, 11/13/1992, 1991, Additional history exists Hepatitis B Vaccines (1 of 3 - 19+ 3-dose series) 2010 HPV Vaccines (1 - 3-dose SCDM series) 2018 Cervical Cancer Screening Pap with HPV Testing (Age 30 to 64) Every 5 Years 2021 Cervical Cancer Screening with HPV 2021 COVID-19 Vaccine ( season) 2024 12/17/2020, 11/26/2020 Hepatitis C Completed 02/04/2022 Meningococcal B Vaccine Aged Out No l [...] supervision of other normal , unspecified trimester ([facility]/HCC) from Last 3 Months or Most Recently [...] 1:20 PM Narrative 11/28/2024 1:[address] [place] [address] Examination: Pelvic ultrasound. Exam time: 0814 hours. Clinical history: Follow-up of right ovarian cyst. Comparison: CT of the abdomen and pelvis, 09/22/2024 ([facility]). Technique: Transabdominal grayscale and color Doppler images [...] Procedure Note Hakeem Wagner MD - 11/28/[address] [place] [address] Examination: Pelvic ultrasound. Exam time: 0814 hours. Clinical history: Follow-up of right ovarian cyst. Comparison: CT of the abdomen and pelvis, 09/22/2024 ([facility]). Technique: Transabdominal grayscale and color Doppler [...] By: Hakeem Wagner MD, 11/28/2024 1:20 PM Kenya Wells PA-C ULTRASOUND Final Resul t * HEPATITIS C ANTIBODY (02/04/2022 12:36 PM CDT) HEPATITIS C AB NON-REACTI VE NON-REACT CESIA 02/05/2022 6:34 PM CDT [facility] Comment: ANTIBODIES TO HCV NOT DETECTED. DOES NOT EXCLUDE THE POSSIBILITY OF EXPOSURE TO HCV. 02/04/2022 12:3 6 PM CDT us Zora Tong NP LABORATORY Final Result [facility] [address] [place] [address], [id number] from Last 3 Months or Most Recently Relevant to Health Maintenance Insurance MEDICAID Care Teams Showroom Manager Relationship Specialty Start Date End Date Deepak Taveras MD [address] [place] [address] PCP - General INTERNAL MEDICINE 02/20/21 Kieran Baig MD [address] [facility] [place] [place] [address] OBGYRachel 03/11/22
--- NOTE | 2025-01-27 19:06 | ED.FEMALEGU ---
HPI - Female Genitourinary General Chief complaint: Urogenital-Female Stated complaint: blood in urine Time Seen by Provider: 01/27/25 19:06 Source: patient Mode of arrival: ambulatory Limitations: no limitations History of Present Illness HPI Narrative: patient is a 34-year-old female with some blood in her urine for the past week. She has noticed some blood this past week and went to her primary doctor and her workup there was negative. She has come back this evening as she noticed blood again. MD elicited complaint: other ( Hematuria) Pertinent past history: other ( none) Onset (ago): week(s) ( 1) Location of symptoms: urethra ( bladder) Severity: mild Female Urogenital Radiation: Non-Radiating Severity scale (1-10): 1 ( no pain) Quality of pain: other ( no pain) Consistency: intermittent Vaginal discharge: none Vaginal bleeding: none Urinary symptoms: Hematuria Exacerbating factors: none Relieving factors: none Associated symptoms: denies other symptoms Treatment prior to arrival: none Sexual activity: Yes Patient : No Related Data Home Medications ?Medication ?Instructions ?Recorded ?Confirmed ?Last Taken ?Type citalopram 20 mg tablet 40 mg PO DAILY 09/23/24 10/14/24 09/23/24 History valproic acid 250 mg capsule 250 mg PO Q12H 09/23/24 10/14/24 09/23/24 History Allergies Allergy/AdvReac Type Severity Reaction Status Date / Time beet Allergy Unknown Hives Verified 10/09/24 14:09 strawberry Allergy Unknown Hives Verified 10/09/24 14:09 Review of Systems Review of Systems: All systems reviewed & are unremarkable except as noted in HPI and below Constitutional: Constitutional: Reports no additional constitutional complaints Eyes: Eyes: Reports no additional eye complaints ENT: Reports system reviewed and no additional complaints, except as documented Cardiovascular: Cardiovascular: Reports no additional cardiovascular complaints Respiratory: Respiratory: Reports no additional respiratory complaints Gastrointestinal: Gastrointestinal: Reports no additional gastrointestinal complaints Genitourinary: Genitourinary: Reports no additional female genitourinary complaints Musculoskeletal: Musculoskeletal: Reports no additional musculoskeletal complaints Integumentary/Breasts: Skin/Breast: Reports system reviewed and no additional complaints, except as docu Neurologic: Reports system reviewed and no additional complaints, except as documented Psychiatric: Psychiatric: Reports no additional psychiatric complaints Endocrine: Endocrine: Reports no additional endocrine complaints Hematologic/Lymphatic: Hematologic/Lymphatic: Reports no additional hematologic/lymphatic complaints Allergic/Immunologic: Allergic/Immunologic: Reports no additional allergic/immunologic complaints [facility] Past Medical History Medical History Anemia Surgical History Surgical History History of laparoscopic appendectomy Robotic assisted laparoscopic appendectomy Dr. Moses Social History Social History Smoking status: Never smoker Second hand tobacco smoke exposure: No Alcohol intake: never Substance use: current Substance use type: marijuana Do You Feel Safe in your Home?: Yes Lack of Transportation: No Lack of Food: Never True Current Housing: I Have Housing Concerned About Future Housing: No Difficulty Paying Gas/Electric Bills: No Difficulty Paying for Meds: No Currently Unemployed: No Education: Master's Degree or Higher Difficulty w/ Childcare or Family Care: No Spiritual care concerns: No Exam Const: General: healthy appearing Nutritional Appearance: well nourished Orientation/consciousness: patient oriented x3 HENMT: Head: normal to inspection Ears: external ears normal Face/Nose/Sinus: Normal external nose present Eyes: Conjunctivae: conjunctivae normal Pupils: Equal, round and reactive pupils present EOM: EOMs intact bilaterally Neck: Neck: normal visual inspection Chest: Chest palpation & inspection: normal inspection of the chest Resp: Effort & Inspection: normal respiratory effort and not labored Auscultation: clear to auscultation bilaterally and no crackles Cardio: Rate: regular rate Rhythm: regular rhythm Heart sounds: no murmurs GI: Inspection: non-distended GI Palp: Yes Soft to palpation and No Tenderness to palpation present (GI) Auscultation: normal bowel sounds : General: Yes bladder normal to palpation Back/Spine/Pelvis: Back: no CVA tenderness Skin: General skin exam: normal color Rashes: no rashes Wounds: no wounds Neuro: General: patient oriented x3 and moves all extremities Cranial nerves: Yes Nystagmus not present Speech: normal speech Gait exam (Neuro): Normal gait present Extrem: General: normal to inspection Psych: Appearance: grossly normal Mental Status: mental status grossly normal Affect: normal affect Attitude: cooperative Course Vital Signs Vital signs: Vital Signs Temperature 36.7 C 01/27/25 18:48 Pulse Rate 84 01/27/25 18:48 Respiratory Rate 16 01/27/25 18:48 Blood Pressure 118/79 01/27/25 18:48 Pulse Oximetry 96 01/27/25 18:48 Oxygen Delivery Room Air 01/27/25 18:48 Temperature 36.4 C 01/27/25 20:32 Pulse Rate 72 01/27/25 20:32 Respiratory Rate 18 01/27/25 20:32 Blood Pressure 116/81 01/27/25 20:32 Pulse Oximetry 95 01/27/25 20:32 Oxygen Delivery Room Air 01/27/25 20:32 MDM - Female Genitourinary MDM Narrative Medical decision making narrative: patient is a 34-year-old female with hematuria on and off for the past week. Urinalysis. test. GC chlamydia. Lab Data Attestation: I reviewed the patient's lab results. Labs: Lab Results 01/27/25 01/27/25 Range/Units 19:37 20:29 Urine Color Yellow (Yellow) Urine Appearance Clear (Clear) Urine pH 6.0 (5.0-8.0) Ur Specific [place] 1.020 (1.010-1.020) Urine Protein Negative (Negative) Urine Glucose (UA) Negative (Negative) Urine Ketones Trace H (Negative) Ur Blood (Man) 1+ H (Negative) Urine Nitrate Negative (Negative) Urine Bilirubin Negative (Negative) Urine Urobilinogen 1.0 (0.2-1.0) mg/dL Leukocyte Esterase Rfl Negative (Negative) ALICE/UL Urine RBC 0-2 (0-2) /hpf Urine WBC 0-3 (0-3) /hpf Ur Squamous Epith Cells Many H (Few) /hpf Urine Bacteria 1+ H (None) /hpf Urine Test Negative Discharge Plan Discharge Clinical Impression: Acute hemorrhagic cystitis Patient Disposition: Home Condition: Stable Instructions: Antibiotic Form, Urinary Tract Infection in Women (ED) Patient Language: Spanish Prescriptions: New cephalexin 500 mg capsule 500 mg PO TID 7 Days Qty: 21 0RF No Action valproic acid 250 mg capsule 250 mg PO Q12H citalopram 20 mg tablet 40 mg PO DAILY hydrocodone-acetaminophen 5-325 mg Tablet 1 tablet PO Q6H PRN (Reason: Pain Rated 4-6) Qty: 10 0RF Follow-up/Referrals: Kieran Baig M.D. [Primary Care Provider] - Time of Disposition: 20:27
--- OUTSIDE RECORDS SUMMARY | 2025-01-27 19:15 | XMS_ITS | Continuity of Care Document ---
Author Organization [facility] Address [address] [place] [address] [place] [address] Phone Care Team Providers Care Bpm Developer Name Role Phone Unavailable Unavailable Unavailable Advance Directives Directive Yes / No Effective Date File Name No Information Encounters Encounter Description Practice Location Reason(s) For Visit Diagnoses Date Provider Providers Copied on Encounter [facility], [address] [place] [address] [address], [place], [place], [id number], [place] tel:[phone] [facility] [place] No Information Sep- 7-200 0 No Information Family History Family Member Type Diagnosis Age At Onset No Information Payers Payer name Insurance type Covered republican ID Authoriza tion(s) [employer] SOI CI [id number] Social History Type Description Quantity Date Captured [...]
[2025-01-27 19:42] LABS: Add Urine Microscopic? YES; Appearance Urine Clear (Clear); Glucose Urine UA Negative (Negative); Leukocyte Esterase Ur Negative LEU/UL (Negative); Nitrate Urine Negative (Negative); Specific Grav Ur 1.020 (1.010-1.020)
[2025-01-27 20:32] VITALS: BP 116/81; PULSE 72; RESP 18; TEMP 36.4; O2SAT 95
[2025-01-27] MEDS: CEPHALEXIN 500 MG CAPSULE PO (20:34)
[2025-01-27 20:51] LABS: Pregnancy On Board Control Positive
== END 2025-01-27 20:43 | disposition home or self-care (01) ==
PROVIDERS: Emergency Provider Emergency Medicine; PCP Family Medicine
DX: N30.00 Acute cystitis without hematuria (principal)
CPT/HCPCS: 81001; 81025; 87491; 87591; 99283; A9270

== ENCOUNTER 2025-05-26 07:21 | Outpatient (CLI) | payer OTHER, SELFPAY ==
--- NOTE | ~2025-05-26 | US_ITS ---
EXAMINATION: US thyroid DATE: 05/26/2025 07:51 INDICATION: Enlarged thyroid TECHNIQUE: Multiple ultrasound images of the thyroid were obtained. COMPARISON: None. FINDINGS: The right thyroid lobe measures 4.3 x 1.8 x 1.3 cm. The left thyroid lobe measures 4.6 x 2.0 x 1.2 cm. Isthmus: 5.4 mm 3 mm cystic focus noted in the right lobe. There is otherwise normal echotexture and echogenicity throughout the thyroid gland. No discrete nodules identified. Normal vascular flow is present. IMPRESSION: 1. Mildly thickened isthmus but otherwise normal size thyroid. 2. 3 mm benign-appearing cyst in the right lobe. No dominant nodules or masses. Reviewed, dictated and finalized at location A. CH/LANGUAGE THERAPIST
== END 2025-05-26 07:22 | disposition home or self-care (01) ==
LOC: CHSIMG 07:24
PROVIDERS: PCP Family Medicine; Visit Provider Physician Assistant
DX: E04.9 Nontoxic goiter, unspecified (principal); E04.1 Nontoxic single thyroid nodule
CPT/HCPCS: 76536

== ENCOUNTER 2025-05-31 07:50 | Outpatient (CLI) | payer OTHER, SELFPAY | END 2025-05-31 07:51 | disposition home or self-care (01) | LOC: CHSLAB 07:52 | PROVIDERS: PCP Family Medicine; Visit Provider Physician Assistant | DX: F31.9 Bipolar disorder, unspecified (principal) | CPT/HCPCS: 36415; 80164 ==